=== PATIENT | male | born 1955 | race Caucasian/White ===

== ENCOUNTER 2017-08-02 08:12 | Outpatient (CLI) | payer OTHER | END 2017-08-02 08:13 | disposition home or self-care (01) | LOC: LABBT 08:12 | PROVIDERS: ATTEND Specialist | DX: Z01.818 Encounter for other preprocedural examination (principal); R59.0 Localized enlarged lymph nodes; K40.90 Unilateral inguinal hernia, without obstruction or gangrene, not specified as recurrent ==

== ENCOUNTER 2017-08-03 06:00 | Day surgery (SDC) | payer OTHER ==
--- NOTE | 2017-08-01 16:02 | HP ---
HISTORY OF PRESENT ILLNESS: Willard Sterling is a 61-year-old male patient, 283 pounds, 72 inches, BMI 3 8, presents with concerns regarding lymphadenopathy. The patient has had several CAT scans demonstr ating increased lymphadenopathy of retroperitoneum. He is asymptomatic. He does not have weight lo ss and in fact, he has gained weight. He denies night sweats. He denies fever. He denies abdomina l pain. These CAT scans initially revealed \\\\"michelle\\\\" changes consistent with lymphadenopathy. T he lymphadenopathy is increased to 2.5 cm with nodes peripancreatic around the superior mesenteric a rtery and vein and periaortic. On exam, he was appreciated to have lymphadenopathy of right groin g reater than left. On CAT scan, he was noted to have a left inguinal hernia, this was fat containing . The patient is asymptomatic on his left groin. He has never noticed a mass. He does not have an y discomfort. He had a right inguinal hernia repair when he was in the many years ago. I have been asked by Dr. Mccloud for lymph node biopsy. The patient does not desire left inguinal hernia repair at this time. Should he become symptomatic in the future or he developed a mass, this could be repaired. The patient has a history of coronary stent placed after cardiac evaluation for dyspnea. He has never had a myocardial infarction. He follows Dr. Melo and in fact after this v isit today saw Dr. Melo and an echocardiogram is planned for the next day or two and if that is ok ay, he is cleared for surgery and will await that result. Plan is for laparoscopic evaluation for p ossibility of excisional biopsy of mesenteric node and possibility of a right inguinal node biopsy. The nodes in his right groin are probably 2 cm more or less. On 07/18/2016, CT scan of abdomen and pelvis revealed enlarged lymph nodes retroperitoneal, superior mesenteric artery and vein area, and periaortic and peripancreatic with michelle mesentery sign, which is a nonspecific sign that may signify lymphoma. As noted above, he had inguinal hernia with fat c ontaining without bowel. He had a nonobstructing stone within the right kidney and AVM of the right femoral head, it was stable. Subsequently, he had a CAT scan of the abdomen and pelvis on 07/26/20 17 that revealed conspicuous changes, increase in size of lymphadenopathy in areas described to 2.5 cm, and the hernia as described. Recent CBC was normal. The patient reports normal colonoscopy fiv e years ago with Dr. Sanders. As noted above, he has a history of cardiac stent placement and catheter ization done for dyspnea. 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 Cardiac evaluation and plan is noted above. PAST MEDICAL HISTORY: Coronary artery disease, sleep apnea. He can use the CPAP at home. PAST SURGICAL HISTORY: Lithotripsy, cystourethroscopy and stone removal, hydrocele removal as a issa nager, right inguinal hernia repair when in the , colonoscopy performed in the past. TOBACCO: None. ALCOHOL: None to rare. MEDICATIONS: Aspirin daily, Zyrtec daily, rosuvastatin daily. PHYSICAL EXAMINATION: VITAL SIGNS: Weight 283 pounds, height 72 inches, BMI 38, blood pressure 136/81, heart rate 69, tem perature 97.3 degrees. HEAD, EYES, EARS, NOSE, AND THROAT: Unremarkable. LUNGS: Clear to auscultation. CARDIAC: Regular rate and rhythm without murmur or gallop. ABDOMEN: Soft, obese. No axillary or cervical lymphadenopathy. Groins lymphadenopathy, right grea ter than left. Nodes, however, not remarkable on the right, probably 2.5 cm at most, mobile, non-ma tted. EXTREMITIES: Unremarkable. Left groin examined standing. Inguinal hernia present on Valsalva, rig ht groin without hernia on Valsalva. ASSESSMENT AND PLAN: 1. Lymphadenopathy, retroperitoneal, increased in size on serial CAT scans. We will plan laparosco pic evaluation and biopsy is indicated. 2. Right groin lymphadenopathy of questionable significance, possible biopsy pending above findings . 3. Coronary artery disease, stable, echocardiogram planned with Dr. Melo, cardiac clearance pendi ng now. 4. Coronary disease, history of cardiac stent placed for dyspnea, asymptomatic since he is very act candida physically without cardiac symptoms. 5. Left inguinal hernia observed. ADDENDUM: Mr. Sterling saw Dr. Prema Melo, had an EKG that was unremarkable. Dr. Melo agreed the patient wa s asymptomatic from a cardiac standpoint. He was cleared to proceed with surgery without further wo rkup or intervention. The patient will be scheduled for laparoscopic biopsy of abdominal nodes, pos sible right groin node biopsy. ADDENDUM: Mr. Sterling is undergoing laparoscopic evaluation of mesenteric lymphadenopathy, possible e xcisional biopsy of a groin node. The patient has been followed by Dr. Melo. I personally discus sed with Dr. Melo who states that the patient is cleared for surgery without further cardiac evalu ation.
[2017-08-02 08:28] VITALS: BMI 37.7
--- NOTE | 2017-08-02 14:52 | HP ---
ADDENDUM: Addendum to dictation [id number] Mr. Sterling is undergoing laparoscopic evaluation of mesenteric lymphadenopathy, possible excisional b iopsy of a groin node. The patient has been followed by Dr. Melo. I personally discussed with Dr Adrian Mleo who states that the patient is cleared for surgery without further cardiac evaluation.
[2017-08-03] MEDS ORDERED: CEFAZOLIN/Water 2 GM/20 ML SYRINGE ONE (06:23)
[2017-08-03] MEDS ORDERED: Ketorolac Tromethamine 30 MG/ML VIAL ONE (06:23)
[2017-08-03] MEDS ORDERED: Bupivacaine/Epinephrine 0.25% 30 ML VIAL ONE (07:01)
[2017-08-03] MEDS ORDERED: Midazolam HCl 2 mg/2 ml Vial ONE (07:08)
[2017-08-03] MEDS ORDERED: Fentanyl 100 MCG/2 ML VIAL ONE (07:08)
[2017-08-03] MEDS ORDERED: Lidocaine 2% PF 10 ML AMP (For Epidural Use) ONE (07:27)
[2017-08-03] MEDS ORDERED: Ondansetron HCl/PF 4 MG/2 ML Vial ONE (07:27)
[2017-08-03] MEDS ORDERED: Propofol 200 MG/20 ML VIAL ONE (07:27)
[2017-08-03] MEDS ORDERED: ePHEDrine/0.9% NaCl/PF SYRINGE 50 mg/10 ml ONE (07:27)
--- NOTE | 2017-08-03 10:46 | OP ---
DATE OF PROCEDURE: 08/03/2017 PREOPERATIVE DIAGNOSES: Lymphadenopathy increased from size 1.5 to 2.5 cm, peripancreatic periaortic mesenteric SMA area. Morbid obesity. POSTOPERATIVE DIAGNOSES: Lymphadenopathy increased from size 1.5 to 2.5 cm, peripancreatic periaorti c mesenteric SMA area. Morbid obesity. PROCEDURE: Diagnostic laparoscopy. I could not identify a node to biopsy, although there was some f atty tissue that turned out not to be anderson. Evaluation of the groins under anesthesia revealed abse nce of lymphadenopathy. SPECIMENS: None. SURGEON: Dr. Sg Medina ANESTHESIA: General. Local 0.5% Marcaine with epinephrine, 30 mL. PROCEDURE: The patient was taken to the operating room where under general anesthesia, abdomen was c lipped of hair, prepared with ChloraPrep, draped in routine fashion. Left lateral subcostal incision made and pneumoperitoneum to 15 mmHg obtained with the Veress needle, replacing it with a 5 port. L eft lateral abdominal incision made and an 11 port placed. Left lower quadrant lateral incision made and a 5 port placed, all under laparoscopic visualization. The patient was placed in Trendelenburg, rotated to his right, viscera reflected to his right and I inspected the area near the duodenum alex g the periaortic area and could not find any adequate nodes to biopsy. There was an area where there appeared to be possible anderson tissue in the mesentery of the small bowel and this was opened, but ag ain just fatty tissue, I could not identify a node. I then rotated the patient to the left lateral d ecubitus position and exposed the area near the superior mesenteric artery were preoperative CAT scan suggested lymphadenopathy. There was some fullness in the area and over a generalized area I opened the peritoneum and again there was abundant fatty tissue, but no significant lymphadenopathy. Caref ul dissection using the LigaSure and blunt dissection revealed only fatty tissue. I could not identi fy a node to biopsy or excise. Further dissection was felt to be not worthwhile and pneumoperitoneum reduced. All instruments removed and all skin incisions approximated with interrupted subdermal 4-0 Monocryl and DermaGlue applied. Under anesthesia I did then inspected the groins, evaluated them and I did not feel that there was an y significant lymphadenopathy worthy of biopsy. Incision was not made. The patient tolerated the pr ocedure well.
== END 2017-08-03 11:05 | disposition home or self-care (01) ==
LOC: SDC 06:00
PROVIDERS: ATTEND Specialist
PROC: 0WJH4ZZ Inspection of Retroperitoneum, Percutaneous Endoscopic Approach (ICD-10-PCS; principal; 2017-08-03)
DX: R59.0 Localized enlarged lymph nodes (principal); K40.90 Unilateral inguinal hernia, without obstruction or gangrene, not specified as recurrent; E66.01 Morbid (severe) obesity due to excess calories; I25.10 Atherosclerotic heart disease of native coronary artery without angina pectoris; G47.33 Obstructive sleep apnea (adult) (pediatric); Z68.37 Body mass index [BMI] 37.0-37.9, adult; Z79.82 Long term (current) use of aspirin; Z79.899 Other long term (current) drug therapy; Z99.89 Dependence on other enabling machines and devices; Z91.018 Allergy to other foods; Z95.818 Presence of other cardiac implants and grafts; Z90.89 Acquired absence of other organs; Z98.890 Other specified postprocedural states; Z85.828 Personal history of other malignant neoplasm of skin
CPT/HCPCS: J0131; J1885; J2001; J2250; J2405; J2704; J3010

== ENCOUNTER 2017-11-17 11:55 | Outpatient (CLI) | payer BC ==
[2017-11-17 13:24] LABS: Hemoglobin 15.2 g/dL (14.0-18.0); Mean Corpuscular HGB CONC 34.8 g/dL (32.0-36.0); Mean Corpuscular Hemoglobin 32.9 pg (27.0-31.0); Mean Corpuscular Volume 94.4 fl (80.0-94.0); Mean Platelet Volume 6.4 fL (7.4-10.4); Platelet Count 185 thou/uL (130-400); RBC Distribution Width 11.6 % (11.5-14.5); Red Blood Cell (RBC) Count 4.62 mill/uL (4.70-6.10); White Blood Cell (WBC) Count 4.9 thou/uL (4.8-10.8)
[2017-11-17 13:29] LABS: Prothrombin Time 13.1 SEC (12.0-14.7)
[2017-11-17 13:30] LABS: PTT 28.1 SEC (22.9-36.1)
[2017-11-17 13:45] LABS: Anion Gap 10 mmol/L (10-20); BUN (Urea Nitrogen) 12 mg/dL (8.4-25.7); Calc. Creatinine Clearance 0 mL/min (70-130); Calcium 9.3 mg/dL (7.8-10.44); Carbon Dioxide 27 mmol/L (23-31); Chloride 106 mmol/L (98-107); Estimated GFR-MDRD Greater than 90; Glucose 94 mg/dL (80-115); Sodium 139 mmol/L (136-145)
== END 2017-11-17 11:56 | disposition home or self-care (01) ==
LOC: LABBT 11:55
PROVIDERS: ATTEND Internal Medicine Cardiovascular Disease
DX: Z01.818 Encounter for other preprocedural examination (principal); I25.10 Atherosclerotic heart disease of native coronary artery without angina pectoris; R94.30 Abnormal result of cardiovascular function study, unspecified
CPT/HCPCS: 80048; 85027; 85610; 85730

== ENCOUNTER → 2017-11-22 | Day surgery (SDC) | payer BC ==
[2017-11-17 12:42] VITALS: BMI 37.5
[~2017-11-22] MED LIST: Fentanyl 100 MCG/2 ML VIAL ONE; Iopamidol 370 76% 100 ML VIAL ONE; Lidocaine 1% (PF) 30 ML VIAL ONE; Midazolam HCl 2 mg/2 ml Vial ONE
--- NOTE | 2017-11-22 14:33 | CON ---
DATE OF CONSULTATION: 11/22/2017 HISTORY OF PRESENT ILLNESS: This is a soon to be 62-year-old gentleman with coronary stents due to d yspnea on exertion about 14 years ago to the LAD. Repeat catheterization subsequently showed good re sult. He has been doing well, although may have had some increased dyspnea on exertion. 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 He underwent stress test showing a decrease in the anterior wa ll ejection fraction with exercise. His risk factors include obesity, and dyslipidemia with no histo ry of hypertension or diabetes mellitus. PAST SURGICAL HISTORY: Includes cholecystectomy, kidney stone removal by Dr. Florence, 5 sinus sur[address] ies by Dr. Sunshine as well as removal of tonsils and uvula by Dr. Sunshine. He has had a remote hydroc frances removal and right inguinal hernia repair. Most recently in 08/2017 he had a laparoscopy to biops y some lymph nodes that turned out to be fatty tissue. SOCIAL HISTORY: As noted above, he is a nonsmoker. He is and accompanied by [id number] and his . REVIEW OF SYSTEMS: The patient has nocturia x1. He denies chest discomfort, no history of stroke. No GI complaints. Respiratory; complains occasionally has coughing spells related to perhaps some a spiration related to his upper airway surgery. MEDICATIONS: Aspirin, Crestor 40, Zetia 10. PHYSICAL EXAMINATION: VITAL SIGNS: Weight 270. NECK: No carotid bruits. CARDIAC: Regular rate and rhythm. No murmurs. LUNGS: Clear to auscultation. ABDOMEN: Obese, nontender. EXTREMITIES: Palpable pedal pulses bilaterally. PLAN: Cardiac catheterization in-stent LAD stenosis with a proximal LAD lesion and then 80% stenosis of an OM 1 and 30% right coronary stenosis. Plan coronary bypass grafting to the LAD, OM1. The pa tiebuddy will contact my office to schedule.
== END ==
LOC: CCL 05:58
PROVIDERS: ATTEND Internal Medicine Cardiovascular Disease
PROC: B2151ZZ Fluoroscopy of Left Heart using Low Osmolar Contrast (ICD-10-PCS; principal; 2017-11-22)
PROC: 4A023N7 Measurement of Cardiac Sampling and Pressure, Left Heart, Percutaneous Approach (ICD-10-PCS; principal; 2017-11-22)
DX: I25.10 Atherosclerotic heart disease of native coronary artery without angina pectoris (principal); E78.5 Hyperlipidemia, unspecified; I10 Essential (primary) hypertension; Z79.82 Long term (current) use of aspirin; Z79.899 Other long term (current) drug therapy; Z91.018 Allergy to other foods
CPT/HCPCS: 76942; 93458; 99152; 99153; C1769; J1644; J2001; J2250; J3010

== ENCOUNTER 2017-12-06 07:49 | Inpatient (IN) | payer BC ==
[2017-12-06] MEDS ORDERED: Nitroglycerin 0.4 MG TAB (25 Tab Bottle) ONE ×2 (07:55→13:04)
[2017-12-06 08:20] LABS: #Eosinphils 0.2 thou/uL (0.0-0.7); #Lymphocytes 1.6 thou/uL (1.20-3.40); #Monocytes 0.4 thou/uL (0.11-0.59); #Neutrophils 3.5 thou/uL (1.40-6.50); %Basophils 0.5 % (0.0-1.0); %Eosinophils 3.6 % (0.0-10.0); %Lymphocytes 27.7 % (21.0-51.0); %Monocytes 7.7 % (0.0-10.0); %Neutrophils 60.5 % (42.0-75.0); Hemoglobin 16.5 g/dL (14.0-18.0); Mean Corpuscular HGB CONC 34.8 g/dL (32.0-36.0); Mean Corpuscular Hemoglobin 32.9 pg (27.0-31.0); Mean Corpuscular Volume 94.5 fl (80.0-94.0); Mean Platelet Volume 6.8 fL (7.4-10.4); Platelet Count 197 thou/uL (130-400); RBC Distribution Width 11.7 % (11.5-14.5); Red Blood Cell (RBC) Count 5.03 mill/uL (4.70-6.10); White Blood Cell (WBC) Count 5.7 thou/uL (4.8-10.8)
--- NOTE | 2017-12-06 08:38 | RAD ---
PORTABLE CHEST 1 VIEW: Date: 12/06/17 Time: 0833 hours HISTORY: Left-sided chest pain. FINDINGS: Comparison made with exam of 06/30/16. The heart size is stable. No confluent areas of consolidation, pneumothorax, chacha pulmonary edema, o r pleural effusions are seen. IMPRESSION: No radiographic evidence of acute cardiopulmonary process. POS: OFF
[2017-12-06 08:41] LABS: ALT (SGPT) 45 U/L (8-55); AST (SGOT) 37 U/L (5-34); Albumin 4.7 g/dL (3.4-4.8); Alkaline Phosphatase 86 U/L (40-150); Anion Gap 13 mmol/L (10-20); BUN (Urea Nitrogen) 10 mg/dL (8.4-25.7); Bilirubin, Total 0.8 mg/dL (0.2-1.2); CK (CPK) 177 U/L (30-200); Calc. Creatinine Clearance 0 mL/min (70-130); Calcium 9.6 mg/dL (7.8-10.44); Carbon Dioxide 26 mmol/L (23-31); Chloride 104 mmol/L (98-107); Estimated GFR-MDRD 90; Glucose 135 mg/dL (80-115); Potassium 4.3 mmol/L (3.5-5.1); Protein, Total 7.7 g/dL (5.8-8.1); Sodium 139 mmol/L (136-145)
[2017-12-06 08:42] LABS: CKMB 4.2 ng/mL (0-6.6); Troponin I Less than 0.010 ng/mL (< 0.028)
[2017-12-06] MEDS ORDERED: Enoxaparin Sodium 100 MG/ML SYRINGE ONE (12:53)
[2017-12-06] MEDS ORDERED: Morphine 4 MG/ML VIAL ONE (13:04)
[2017-12-06] MEDS ORDERED: Nitroglycerin 2% Ointment 1 INCH/1 GM Packet ONE (13:34)
[2017-12-06] MEDS ORDERED: Nitroglycerin 2% Ointment 1 INCH/1 GM Packet TOP SCH (14:00)
[2017-12-06 14:47] LABS: Troponin I Less than 0.010 ng/mL (< 0.028)
[2017-12-06] MEDS ORDERED: HYDROcodone/Acetaminophen 5/325 mg Tablet PO PRN (14:52)
[2017-12-06] MEDS ORDERED: Mag-Al 1200 mg/1200 mg/30 ML UDCUP PO PRN (14:52)
[2017-12-06] MEDS ORDERED: Benzonatate 100 MG CAP PO PRN (14:52)
[2017-12-06] MEDS ORDERED: Lorazepam 1 MG TAB PO PRN (14:52)
[2017-12-06] MEDS ORDERED: Loratadine 10 MG TAB PO PRN (14:52)
[2017-12-06] MEDS ORDERED: traMADol HCl 50 MG TAB PO PRN (14:52)
[2017-12-06] MEDS ORDERED: Diabetic Tussin 200 MG/10 ML UDCUP PO PRN (14:52)
[2017-12-06] MEDS ORDERED: cloNIDine 0.1 MG TAB PO PRN (14:52)
[2017-12-06] MEDS ORDERED: Ondansetron HCl/PF 4 MG/2 ML Vial IVP PRN (14:52)
[2017-12-06] MEDS ORDERED: Nitroglycerin 0.4 MG TAB (25 Tab Bottle) SL PRN (14:52)
[2017-12-06] MEDS ORDERED: Senokot 8.6 MG TAB PO PRN ×2 (14:52)
[2017-12-06] MEDS ORDERED: Bisacodyl 5 MG TAB PO PRN ×2 (14:52)
[2017-12-06] MEDS ORDERED: Calcium Carbonate 500 MG ChewTAB PO PRN (14:52)
[2017-12-06] MEDS ORDERED: Acetaminophen 325 MG TAB PO PRN (14:52)
[2017-12-06] MEDS ORDERED: hydrALAZINE 20 MG/ML VIAL SLOW IVP PRN (14:52)
--- NOTE | 2017-12-06 14:58 | CON ---
DATE OF CONSULTATION: 12/06/2017 HISTORY OF PRESENT ILLNESS: The patient is a pleasant 61-year-old gentleman with a history of coronary artery disease, who presents with recurrent chest discomfort. The patient has a long history of coronary artery disease. He states in 2004, he had several cardiac stents placed. Most recently, the patient developed increasing dyspnea. He underwent a stress test that revealed evidence of ischemia. He subsequently underwent a cardiac catheterization and found to have severe coronary artery disease and was scheduled to undergo coronary bypass graft surgery. The patient was going to go to the dentist today when he developed left-sided chest pain that radiated into his left arm. He came to the emergency room for further evaluation. The patient at this time reports that he has continued to have chest discomfort. PAST MEDICAL HISTORY: 1. CAD. 2. Hypertension. 3. Dyslipidemia. 4. Kidney stones. PAST SURGICAL HISTORY: Hernia surgery, tonsillectomy, sinus surgery. MEDICATIONS: Lipitor 40 at bedtime, aspirin tablet daily, and Zetia 10 daily. SOCIAL HISTORY: Nonsmoker. ALLERGIES: None. FAMILY HISTORY: No strong family history of heart disease. REVIEW OF SYSTEMS: Ten-point system otherwise unremarkable. No history of easy bruising or bleeding, bright red blood per rectum. PHYSICAL EXAMINATION: GENERAL: This is an obese gentleman in no acute distress with a blood pressure of 150/90. NECK: Showed no jugular venous distention, no carotid bruits. LUNGS: Clear to auscultation. HEART: Regular rate and rhythm, normal S1 and S2, no murmurs. ABDOMEN: Distended. EXTREMITIES: Showed no edema. SKIN: Warm and dry. NEUROLOGIC EXAM: Nonfocal. VASCULAR: Radial pulses 2+. LABORATORY DATA: White blood cell count 5.7, hemoglobin 16.5, hematocrit 47.6, platelets are 197. Sodium is 139, potassium 4.3, chloride 104, bicarbonate 26, BUN 10, creatinine is 0.86, troponin less than 0.01. EKG revealed sinus bradycardia with no acute ST-T-wave changes. IMPRESSION: 1. Unstable angina. 2. History of severe coronary artery disease. 3. Hypertension. 4. Dyslipidemia. 5. Obesity. This gentleman presents with unstable angina. The patient has continued to have chest discomfort. The patient will now receive subcutaneous Lovenox, nitro paste, and morphine. If the patient's chest pain continues, he will need to be placed on IV nitroglycerin. Cardiothoracic will be consulted. We will follow this patient with you through his hospitalization. CHASITY
--- NOTE | 2017-12-06 15:37 | HP ---
DATE OF ADMISSION: 12/06/2017 PRIMARY CARE PHYSICIAN: Ruperto Ornelas M.D. PRIMARY SEGMENTAL PAVER INSTALLER: Dr. Melo. CHIEF COMPLAINT: Chest pain, diaphoresis, shortness of breath. HISTORY OF PRESENT ILLNESS: Mr. Sterling is a pleasant 61-year-old male with past medical his tory of dyslipidemia, coronary artery disease, and kidney stones status post cardiac stenting x3, who presented to the ER with above-mentioned complaint. History is mainly obtained by the patient himse lf and electronic medical records have been reviewed. Mr. Sterling reports that he has been under care of Dr. Melo and for the last few months has been havi ng worsening shortness of breath. He underwent cardiac stress testing on 11/22/2017 which showed api ayanna ischemia. For this reason, he underwent cardiac catheterization by Dr. Melo on 11/22/2017. Th is showed 2-vessel coronary artery disease with lesions in LAD stent 90% as well as 90% obtuse margin al to 60% ostial LAD lesions. EF estimated at 55%. He was sent to Cardiothoracic Surgery, Dr. Boyle for elective CABG. Dr. Boyle saw the patient on 11/22/2017 and the plan was to get him scheduled fo r CABG of 2 vessels on 12/09/2017. However, the patient started to have symptoms earlier this morning while driving to dentist. He repo rts that he had a dull, 4/10 pain in the center of the chest, associated with left arm heaviness, jeannie rtness of breath, diaphoresis, nausea and dizziness. These symptoms alarmed him and he presented to the emergency room instead. Upon presentation to the ER, his blood pressure was 218/112 with a pulse of 71, oxygen saturation 94% on room air. His initial workup included a 12-lead EKG which did not h ave any acute ST or T-wave changes. His cardiac enzymes were unremarkable. His EKG was repeated and once again it did not show any acute changes. He received transdermal as well as sublingual nitrogl ycerin in the emergency room with morphine. He also received 1 mg/kg of Lovenox x1 as well as 5 mg o f labetalol and 325 mg of aspirin in the ER. His migratory farm hand was consulted as well as his cardiotho racic surgeon. The plan is to admit this patient to Medicine team for possible coronary artery bypas s graft during this hospitalization. Primary diagnosis at the time unstable angina. PAST MEDICAL HISTORY: 1. Coronary artery disease status post cardiac stenting. 2. Hypertension. 3. Kidney stone followed up with Dr. Florence. ALLERGIES: No known medication allergies. FAMILY HISTORY: Coronary artery disease and quadruple bypass in father in his 60s. SOCIAL HISTORY: He is and lives with his family. No history of drug, tobacco or alcohol abu se. PAST SURGICAL HISTORY: 1. Cholecystectomy. 2. Kidney stone removal by Dr. Florence. 3. Sinus surgery as well as removal of tonsil and uvula by Dr. Sunshine. 4. History of hydrocele removal. 5. Right inguinal hernia repair. 6. Lymph node biopsy in 08/2017. MEDICATIONS: Aspirin 81 mg daily, Crestor 40 mg daily, Zetia 10 mg daily. REVIEW OF SYSTEMS: The patient is feeling much better at this time. The following complete review o f systems was negative, unless otherwise mentioned in the HPI or below: Constitutional: Weight loss or gain, ability to conduct usual activities. Skin: Rash, itching. Eyes: Double vision, pain. E NT/Mouth: Nose bleeding, neck stiffness, pain, tenderness. Cardiovascular: Palpitations, dyspnea o n exertion, orthopnea. Respiratory: Shortness of breath, wheezing, cough, hemoptysis, fever or nigh t sweats. Gastrointestinal: Poor appetite, abdominal pain, heartburn, nausea, vomiting, constipatio n, or diarrhea. Genitourinary: Urgency, frequency, dysuria, nocturia. Musculoskeletal: Pain, swel ling. Neurologic/Psychiatric: Anxiety, depression. Allergy/Immunologic: Skin rash, bleeding tende ncy. LABORATORY DATA AND IMAGIN. Chest x-ray by my review has no evidence of pulmonary edema, effusion or infiltrate. A 12-lead E KG by my review shows normal sinus rhythm without any acute ST or T-wave changes. No ectopy is notic ed. 2. EKGs done in the emergency room, heart rate 70 in the first EKG and 54 in the second EKG. 3. CBC unremarkable. Serum chemistry, blood sugar 135, AST 37, otherwise unremarkable. Troponin le ss than 0.010 x2. CK-MB normal at 4.2. PHYSICAL EXAMINATION: VITAL SIGNS: Most recent blood pressure 98/63, pulse of 57, respirations 17, saturating 93% on 3 lit ers oxygen, afebrile, temperature 97.5. GENERAL: No acute distress, awake, alert, oriented x3. HEENT: Mucous membrane is moist and pink. No oropharyngeal exudate or erythema. Head is normocepha lic, atraumatic. Pupils are equal, reactive to light and accommodation. Extraocular movements are i ntact. NECK: Supple without any lymphadenopathy, JVD or bruit. CHEST: Clear to auscultation without any wheezing, rales or rhonchi. HEART: Rate and rhythm is regular without any murmur, rubs or gallops. ABDOMEN: Soft, nontender, nondistended with positive bowel sounds. EXTREMITIES: Free of any cyanosis, clubbing, or edema. NEUROLOGIC: Nonfocal. SKIN: Free of any rashes or bruises. Feel warm and dry to touch. PSYCHIATRIC: Normal affect. IMPRESSION AND PLAN: 1. Unstable angina. We will start the patient on therapeutic dose of Lovenox 1 mg/kg at this time. This has been discussed with Dr. Melo. He has actually been evaluated by Dr. Zimmerman who is cove ring for Dr. Melo at this time. Continue with his Lipitor, Zetia, and transdermal nitroglycerin. Patient will also be evaluated by Cardiothoracic Surgery for possible coronary artery bypass graft so matthew than later. He will be admitted to telemetry unit. We will keep a close eye on his blood press ure as he has significant drop in his blood pressure in the Emergency Room with the use of sublingual nitroglycerin and Lopressor. Avoid any further antihypertensives at this time. Reduce the dose of nitroglycerin. Continue daily dose of aspirin. Supplemental oxygen, pain medications have been orde red. 2. Hypertensive urgency. His symptoms have much improved for now. He will continue on transdermal nitroglycerin with close monitoring of the blood pressure. His blood pressure is on the lower side a t this time, so we will avoid any beta-noah, MASSIEL inhibitors for now. P.r.n. antihypertensives and antianxiety medications have been ordered. 3. Dyslipidemia. Resume his Crestor and Zetia for now. 4. History of coronary artery disease as #1: We have started him on full dose aspirin with continua tion of his statin at this time. The patient will undergo coronary artery bypass graft most likely t his hospitalization after evaluation by Cardiology and Cardiothoracic Surgery. 5. Moderate obesity. 6. History of renal stones. 7. Deep venous thrombosis and gastrointestinal prophylaxis. The patient also is on subcutaneous Prince enox therapeutic dose. We will add IV Pepcid b.i.d. for now. 8. Daily labs and supportive care and p.r.n. medications have been ordered. DISPOSITION: Mr. Sterling is currently being admitted to telemetry floor for unstable angina and will m ost likely undergo coronary artery bypass graft. He has no history of 2-vessel coronary artery disea se and most recent cardiac catheterization. Estimated length of stay at this time is at least 2-3 mi dnights.
[2017-12-06] MEDS ORDERED: Communication Order-Pharmacy FS ONE (18:17)
[2017-12-06] MEDS ORDERED: Sodium Chloride 0.9% 10 ML ONE (20:19)
[2017-12-06] MEDS: Nitroglycerin 2% Ointment 1 INCH/1 GM Packet TOP SCH (20:43)
[2017-12-06] MEDS ORDERED: Famotidine 40 MG/4 ML VIAL SLOW IVP SCH (21:00)
[2017-12-06] MEDS ORDERED: Atorvastatin Calcium 40 MG TAB PO SCH (21:00)
[2017-12-06] MEDS ORDERED: Enoxaparin Sodium 120 MG/0.8 ML SYRINGE SC SCH (21:00)
[2017-12-07] MEDS ORDERED: CEFAZOLIN/Water 2 GM/20 ML SYRINGE SLOW IVP SCH (01:15)
[2017-12-07] MEDS: Nitroglycerin 2% Ointment 1 INCH/1 GM Packet TOP SCH (05:30)
[2017-12-07 05:56] LABS: #Eosinphils 0.2 thou/uL (0.0-0.7); #Lymphocytes 1.2 thou/uL (1.20-3.40); #Monocytes 0.5 thou/uL (0.11-0.59); #Neutrophils 3.2 thou/uL (1.40-6.50); %Basophils 0.7 % (0.0-1.0); %Eosinophils 3.3 % (0.0-10.0); %Lymphocytes 23.2 % (21.0-51.0); %Neutrophils 62.8 % (42.0-75.0); Hemoglobin 14.8 g/dL (14.0-18.0); Mean Corpuscular HGB CONC 35.5 g/dL (32.0-36.0); Mean Corpuscular Hemoglobin 32.9 pg (27.0-31.0); Mean Corpuscular Volume 92.7 fl (80.0-94.0); Mean Platelet Volume 6.7 fL (7.4-10.4); Platelet Count 161 thou/uL (130-400); RBC Distribution Width 11.4 % (11.5-14.5); Red Blood Cell (RBC) Count 4.51 mill/uL (4.70-6.10); White Blood Cell (WBC) Count 5.1 thou/uL (4.8-10.8)
[2017-12-07 06:12] LABS: Anion Gap 9 mmol/L (10-20); BUN (Urea Nitrogen) 9 mg/dL (8.4-25.7); Calc. Creatinine Clearance 173 mL/min (70-130); Carbon Dioxide 27 mmol/L (23-31); Chloride 105 mmol/L (98-107); Estimated GFR-MDRD Greater than 90; Glucose 123 mg/dL (80-115); Potassium 4.1 mmol/L (3.5-5.1); Sodium 137 mmol/L (136-145)
[2017-12-07] MEDS ORDERED: Prevnar 13-Val Conj/PF 0.5 ML SYRINGE IM ONE (09:00)
[2017-12-07] MEDS ORDERED: Ezetimibe 10 MG TAB PO SCH (09:00)
[2017-12-07] MEDS ORDERED: Aspirin 325 mg Enteric Coated Tablet PO SCH (09:00)
[2017-12-07] MEDS ORDERED: Heparin 10,000 UNITS/1 ML VIAL 30,000 UNITS in Sodium Chloride 0.9% 1,000 ML FS SCH (09:15)
[2017-12-07] MEDS ORDERED: Fentanyl 250 MCG/5 ML VIAL ONE ×2 (10:22→11:19)
[2017-12-07] MEDS ORDERED: Midazolam HCl 5 mg/5 ml Vial ONE (10:22)
[2017-12-07] MEDS ORDERED: Norepinephrine 8 MG/0.9% NS 250 ML ONE (10:23)
[2017-12-07] MEDS ORDERED: Nitroglycerin 50 MG/250 ML BOT 250 ML ONE (10:23)
[2017-12-07] MEDS ORDERED: Phenylephrine HCL 10 MG/ML VIAL ONE (10:23)
[2017-12-07] MEDS ORDERED: Vecuronium 10 MG VIAL ONE ×2 (10:23→15:41)
[2017-12-07] MEDS ORDERED: CEFAZOLIN/Water 2 GM/20 ML SYRINGE ONE (11:12)
[2017-12-07] MEDS ORDERED: Midazolam HCl 2 mg/2 ml Vial ONE (11:18)
--- NOTE | 2017-12-07 15:21 | PDOC.PN ---
- Subjective Encounter Start Date: 12/07/17 Encounter Start Time: 15:18 Subjective: anxious going for CABG, -: denies any changes.feels well.no chest pain/SOB - Objective MAR Reviewed: Yes Vital Signs & Weight: Vital Signs (12 hours) Temp Pulse Resp BP Pulse Ox 12/07/17 07:51 98.3 F 68 16 133/90 95 12/07/17 04:26 97.8 F 55 L 12 158/83 H 95 Weight Weight 271 lb 1.6 oz I&O: 12/06/17 12/07/17 12/08/17 06:59 06:59 06:59 Intake Total 1450 Output Total 9193 142 Balance -8911 -845 Result Diagrams: 12/07/17 05:20 12/07/17 05:20 Additional Labs: Accuchecks 12/07/17 12/07/17 12/07/17 14:59 14:40 13:51 POC Glucose 128 H 123 H 107 12/07/17 12:12 POC Glucose 98 Phys Exam - Physical Examination Constitutional: NAD HEENT: PERRLA, moist MMs, sclera anicteric, oral pharynx no lesions Neck: no nodes, no JVD, supple, full ROM Respiratory: no wheezing, no rales, no rhonchi, clear to auscultation bilateral Cardiovascular: RRR, no significant murmur Gastrointestinal: soft, non-tender, no distention, positive bowel sounds Musculoskeletal: no edema, pulses present Neurological: non-focal, normal sensation, moves all 4 limbs Psychiatric: normal affect, A&O x 3 Skin: no rash Dx/Plan (1) Unstable angina Status: Acute (2) HTN (hypertension) Code(s): I10 - ESSENTIAL (PRIMARY) HYPERTENSION Status: Acute (3) CAD (coronary artery disease) Code(s): I25.10 - ATHSCL HEART DISEASE OF [place] CORONARY ARTERY W/O ANG PCTRS Status: Acute (4) HLD (hyperlipidemia) Code(s): E78.5 - HYPERLIPIDEMIA, UNSPECIFIED Status: Acute - Plan plan discussed w/ family, DVT proph w/SCDs CABG today.cardiology following -: Cont cardio-prudent meds * . Review of Systems - Review of Systems Constitutional: negative: fever, chills, sweats, weakness, malaise, other Respiratory: negative: Cough, Dry, Shortness of Breath, Hemoptysis, SOB with Excertion, Pleuritic Pain, Sputum, Wheezing Cardiovascular: negative: chest pain, palpitations, orthopnea, paroxysmal nocturnal dyspnea, edema, light headedness, other Gastrointestinal: negative: Nausea, Vomiting, Abdominal Pain, Diarrhea, Constipation, Melena, Hematochezia, Other Genitourinary: negative: Dysuria, Frequency, Incontinence, Hematuria, Retention , Other Musculoskeletal: negative: Neck Pain, Shoulder Pain, Arm Pain, Back Pain, Hand Pain, Leg Pain, Foot Pain, Other Neurological: negative: Weakness, Numbness, Incoordination, Change in Speech, Confusion, Seizures, Other - Medications/Allergies Allergies/Adverse Reactions: Allergies Allergy/AdvReac Type Severity Reaction Status Date / Time tomato AdvReac Diarrhea Verified 11/17/17 12:42 Medications: Current Medications Cefazolin Sodium (Ancef) 2 gm SLOW IVP WILLCALL EREN Stop: 12/08/17 01:16 Heparin Sodium (Porcine) 30, (000 units/ Sodium Chloride) 1,003 mls @ 0 mls/hr FS WILLCALL EREN PRN Reason: As Directed Stop: 12/07/17 23:59
[2017-12-07] MEDS ORDERED: Protamine Sulfate 250 MG/25 ML VIAL ONE ×2 (15:36→15:41)
[2017-12-07] MEDS ORDERED: Heparin 30,000 units/30 ml VIAL ONE (15:41)
[2017-12-07] MEDS ORDERED: Calcium Chloride 1 GM/10 ML Abboject SYRINGE ONE (15:41)
[2017-12-07] MEDS ORDERED: Glycopyrrolate 0.2 MG/ML 5 ML SYRINGE ONE (15:41)
[2017-12-07] MEDS ORDERED: PHENYLEPHRINE-NS 100 MCG/ML 10 ML SYRINGE ONE (15:41)
[2017-12-07] MEDS ORDERED: Potassium Chloride 60 MEQ/30 ML VIAL ONE (15:41)
[2017-12-07] MEDS ORDERED: Cardioplegic Soln 1,000 ML BAG ONE (15:41)
[2017-12-07] MEDS ORDERED: Thrombin 5000 UNITS/5 ML VIAL ONE (15:41)
[2017-12-07] MEDS ORDERED: Lidocaine 2% PF 100 mg/5 ml Syringe ONE (15:41)
[2017-12-07] MEDS ORDERED: Aminocaproic Acid 5 GM/20 ML VIAL ONE (15:41)
[2017-12-07] MEDS ORDERED: Lidocaine 1% PF 5 ML VIAL ONE (15:41)
[2017-12-07] MEDS ORDERED: PROPOFOL 200 MG/20 ML VIAL ONE (15:41)
[2017-12-07] MEDS ORDERED: Sodium Bicarb 50 MEQ/50 ML VIAL ONE (15:41)
[2017-12-07] MEDS ORDERED: Heparin 5,000 UNITS/ML VIAL ONE (15:41)
[2017-12-07] MEDS ORDERED: Magnesium 5 GM/10 ML VIAL ONE (15:41)
[2017-12-07] MEDS ORDERED: Papaverine 60 MG/2 ML VIAL ONE (15:41)
[2017-12-07 17:03] LABS: CO2 Tension 51.9 mmHg (35.0-45.0); O2 Tension (PaO2) 107.8 mmHg (80.0-100.0); pH, Arterial 7.26 (7.35-7.45)
[2017-12-07 17:04] LABS: Base Excess (BEa) -4.6 mEq/L (0 (+/-) 2.5); Calcium, Ionized 1.2 mmol/L (1.12-1.30)
[2017-12-07 17:05] LABS: ALV-art Gradient 255.125 (0-20); Puncture Site LINE
[2017-12-07] MEDS ORDERED: Potassium Chloride 20 MEQ/100 ML PREMIX BAG IVPB PRN (17:07)
[2017-12-07] MEDS ORDERED: DOPamine 400 MG/D5W 250 ML 250 ML IVPB PRN (17:07)
[2017-12-07] MEDS ORDERED: hydrALAZINE 20 MG/ML VIAL SLOW IVP PRN (17:07)
[2017-12-07] MEDS ORDERED: Post-Op Insulin Drip Protocol IVPB ONE (17:07)
[2017-12-07] MEDS ORDERED: Guaifenesin DM 100-10/5 ML UDCUP PO PRN (17:07)
[2017-12-07] MEDS ORDERED: Fentanyl 100 MCG/2 ML VIAL SLOW IVP PRN ×2 (17:07)
[2017-12-07] MEDS ORDERED: Morphine 4 MG/ML VIAL SLOW IVP PRN (17:07)
[2017-12-07] MEDS ORDERED: niCARdipine HCl 25 MG in Sodium Chloride 0.9% 250 ML 240 ML IVPB PRN (17:07)
[2017-12-07] MEDS ORDERED: Norepinephrine 8 MG/0.9% NS 250 ML IVPB PRN (17:07)
[2017-12-07] MEDS ORDERED: Acetaminophen 325 MG TAB PO PRN (17:07)
[2017-12-07] MEDS ORDERED: Hetastarch 6% 500 ML 500 ML IVPB PRN (17:07)
[2017-12-07] MEDS ORDERED: Bisacodyl 5 MG TAB PO PRN (17:07)
[2017-12-07] MEDS ORDERED: Bisacodyl 10 MG SUPP PR PRN (17:07)
[2017-12-07] MEDS ORDERED: Phenylephrine 10 MG/NS 250 ML 250 ML IVPB PRN (17:07)
[2017-12-07] MEDS ORDERED: Nitroglycerin 50 MG/250 ML BOT 250 ML IVPB PRN (17:07)
[2017-12-07] MEDS ORDERED: Mag-Al 1200 mg/1200 mg/30 ML UDCUP PO PRN (17:07)
[2017-12-07] MEDS ORDERED: Ondansetron HCl/PF 4 MG/2 ML Vial IVP PRN (17:07)
[2017-12-07] MEDS ORDERED: Magnesium Sulfate 5 GM in Sodium Chloride 0.9% 1,000 ML IV SCH (17:15)
[2017-12-07 17:16] LABS: #Eosinphils 0.2 thou/uL (0.0-0.7); #Lymphocytes 1.6 thou/uL (1.20-3.40); #Monocytes 0.7 thou/uL (0.11-0.59); %Basophils 0.1 % (0.0-1.0); %Lymphocytes 8.4 % (21.0-51.0); %Monocytes 3.8 % (0.0-10.0); %Neutrophils 86.8 % (42.0-75.0); Hemoglobin 15.2 g/dL (14.0-18.0); Mean Corpuscular HGB CONC 35.5 g/dL (32.0-36.0); Mean Corpuscular Hemoglobin 33.4 pg (27.0-31.0); Mean Platelet Volume 6.6 fL (7.4-10.4); Platelet Count 153 thou/uL (130-400); RBC Distribution Width 11.8 % (11.5-14.5); Red Blood Cell (RBC) Count 4.56 mill/uL (4.70-6.10); White Blood Cell (WBC) Count 18.5 thou/uL (4.8-10.8)
[2017-12-07] MEDS ORDERED: Insulin Regular 300 UNITS/3 ML VIAL SC PRN (17:17)
[2017-12-07] MEDS ORDERED: Dextrose 50% Abboject 50 ML SYRINGE SLOW IVP PRN (17:17)
[2017-12-07] MEDS ORDERED: Dextrose 5% in Water 1,000 ML IV PRN (17:17)
[2017-12-07 17:23] LABS: Anion Gap 15 mmol/L (10-20); BUN (Urea Nitrogen) 10 mg/dL (8.4-25.7); Calc. Creatinine Clearance 171 mL/min (70-130); Calcium 8.3 mg/dL (7.8-10.44); Carbon Dioxide 22 mmol/L (23-31); Chloride 107 mmol/L (98-107); Estimated GFR-MDRD Greater than 90; Glucose 147 mg/dL (80-115); Potassium 4.5 mmol/L (3.5-5.1); Sodium 139 mmol/L (136-145)
[2017-12-07 17:25] LABS: INR-International Normal Ratio 1.3; PTT 29.6 SEC (22.9-36.1)
[2017-12-07] MEDS: Lactated Ringer's 1,000 ML IV SCH (17:58)
[2017-12-07] MEDS: Ketorolac Tromethamine 30 MG/ML VIAL IVP SCH ×2 (17:59→23:16)
--- NOTE | 2017-12-07 18:54 | RAD ---
RADIOGRAPH CHEST 1 VIEW: Date: 12/07/17 Time: 5:10 p.m. HISTORY: 61-year-old male status post open heart surgery. COMPARISON: 12/06/17, 8:33 a.m. FINDINGS: Again noted is the cardiomegaly, and the ectasia and tortuosity of the thoracic aorta. Endotracheal t ube has now been placed, with distal tip overlying the mid thoracic trachea. A right subclavian centr al venous catheter is in place with distal tip overlying the right atrium. Midline chest tubes are vi sualized, with one of their distal tips overlying the left upper lobe. The lungs are again hypoinflat ed. There is increased attenuation of the left lower lobe, obscured by the hypoinflation. No pulmonar y edema. The visualized portions of the right lung are clear. No pneumothorax identified. There are n ew sternotomy wires. IMPRESSION: 1. Immediately status post coronary artery bypass graft surgery. 2. Status post intubation, central line placement, and mediastinal chest tube placement. 3. Left lower lobe atelectasis. PEGGY [] POS: KENZIE
[2017-12-07 19:04] LABS: Actual Bicarbonate (HCO3a) 21.4 mEq/L (22-26); Base Excess (BEa) -4.4 mEq/L (0 (+/-) 2.5); CO2 Tension 42.3 mmHg (35.0-45.0); Hematocrit-ABG 41.3 % (42.0-52.0); Hemoglobin (Hb) 14.9 g/dL (14.0-18.0); pH, Arterial 7.32 (7.35-7.45)
[2017-12-07 19:05] LABS: ALV-art Gradient 116.925 (0-20); Calcium, Ionized 1.1 mmol/L (1.12-1.30); Puncture Site LINE
[2017-12-07] MEDS: CEFAZOLIN/Water 2 GM/20 ML SYRINGE SLOW IVP SCH (19:46)
[2017-12-07] MEDS: Simvastatin 40 MG TAB PO SCH (20:35)
[2017-12-07] MEDS ORDERED: Famotidine 40 MG/4 ML VIAL SLOW IVP SCH (21:00)
[2017-12-07] MEDS: HYDROcodone/Acetaminophen 5/325 mg Tablet PO PRN (21:47)
[2017-12-07 23:43] LABS: Hemoglobin 13.8 g/dL (14.0-18.0)
[2017-12-07 23:56] LABS: Potassium 4.4 mmol/L (3.5-5.1)
[2017-12-08] MEDS: HYDROcodone/Acetaminophen 5/325 mg Tablet PO PRN ×4 (02:43→21:38)
[2017-12-08] MEDS: CEFAZOLIN/Water 2 GM/20 ML SYRINGE SLOW IVP SCH ×2 (02:50→11:53)
[2017-12-08] MEDS: Lactated Ringer's 1,000 ML IV SCH ×3 (04:05→23:06)
[2017-12-08 05:08] LABS: #Lymphocytes 0.6 thou/uL (1.20-3.40); #Monocytes 0.9 thou/uL (0.11-0.59); #Neutrophils 13.3 thou/uL (1.40-6.50); %Eosinophils 0.1 % (0.0-10.0); %Lymphocytes 4.2 % (21.0-51.0); %Monocytes 6.1 % (0.0-10.0); %Neutrophils 89.6 % (42.0-75.0); Mean Corpuscular HGB CONC 34.8 g/dL (32.0-36.0); Mean Corpuscular Hemoglobin 32.7 pg (27.0-31.0); Mean Corpuscular Volume 93.9 fl (80.0-94.0); Mean Platelet Volume 6.8 fL (7.4-10.4); Platelet Count 153 thou/uL (130-400); RBC Distribution Width 11.9 % (11.5-14.5); Red Blood Cell (RBC) Count 3.98 mill/uL (4.70-6.10); White Blood Cell (WBC) Count 14.9 thou/uL (4.8-10.8)
[2017-12-08 05:17] LABS: Anion Gap 11 mmol/L (10-20); BUN (Urea Nitrogen) 11 mg/dL (8.4-25.7); Calc. Creatinine Clearance 182 mL/min (70-130); Calcium 7.9 mg/dL (7.8-10.44); Carbon Dioxide 23 mmol/L (23-31); Chloride 108 mmol/L (98-107); Estimated GFR-MDRD Greater than 90; Glucose 145 mg/dL (80-115); Potassium 4.3 mmol/L (3.5-5.1); Sodium 138 mmol/L (136-145)
[2017-12-08] MEDS: Ketorolac Tromethamine 30 MG/ML VIAL IVP SCH ×4 (05:48→23:41)
--- NOTE | 2017-12-08 08:58 | PRG ---
DATE OF SERVICE: 12/08/2017 SUBJECTIVE: Mr. Sterling he is awake, alert, no complaints. He is off Levophed. PHYSICAL EXAMINATION: VITAL SIGNS: Blood pressure 107/58, pulse 62 and regular. LUNGS: Clear. CARDIAC: Normal S1, normal S2. ABDOMEN: Soft, nontender. EXTREMITIES: No clubbing, no cyanosis or edema. There is a well healing incision site left radial a nd the vein site harvest on the left. ASSESSMENT: 1. Status post bypass surgery, doing well. 2. Hypercholesterolemia. PLAN: Continue current medical regimen. No changes at this point.
[2017-12-08] MEDS: Aspirin 325 MG TAB PO SCH (09:11)
[2017-12-08] MEDS: Famotidine 20 MG TAB PO SCH ×2 (09:11→21:38)
--- NOTE | 2017-12-08 09:55 | RAD ---
PORTABLE SEMIUPRIGHT FRONTAL CHEST RADIOGRAPH: Date: 12/08/17 COMPARISON: 12/07/17. HISTORY: Evaluate chest following open heart surgery. FINDINGS: ETT has been removed since the prior exam. There is a right subclavian central venous catheter, dista l tip overlying the region of the right atrium. Postoperative drainage catheter is overlying the medi astinum and mid left hemithorax. There is dense opacity in the left perihilar region and left base me dially suggesting nonspecific air space disease. IMPRESSION: Lines and tubes as above. Increased density in the left perihilar region and left lung base, which ma y signify volume loss. Continued follow-up advised. POS: [facility]
--- NOTE | 2017-12-08 14:24 | PRG ---
DATE OF SERVICE: 12/08/2017 SUBJECTIVE: The patient seen and examined at the bedside. He is doing quite well. He does not have much complaints to offer. He has some pain when he starts moving. He had some broth which he was a ble to tolerate. There is not any nausea or abdominal discomfort after the meal. He is in semirecum bent position. At the time of my visit, his is present in the room. OBJECTIVE: VITAL SIGNS: Blood pressure is 113/65, pulse is 76, respiratory rate 18, and O2 saturation is 94%. CVP is 12. HEENT: Head is atraumatic, normocephalic. Eyes are PERRLA. Conjunctivae pinkish. Oral mucosa is s lightly dry. NECK: Supple. LUNGS: Breath sounds diminished at both bases with few crackles bilaterally. HEART: S1, S2 normal. No S3, no S4, no any murmur. ABDOMEN: Soft. CHEST: There is a big dressing over the chest, status post CABG surgery with drains coming out from underneath the dressing. EXTREMITIES: 1+ peripheral edema similar bilaterally. NEUROLOGIC: He is alert and oriented x4. There is not any sensorimotor deficit present. Cranial ne rves are intact. LABORATORY DATA: 1. Showed white count of 14.9, hemoglobin 13.0, hematocrit 37.4, and platelet count has 153,000. 2. Sodium of 130, potassium 4.3, chloride 108, CO2 of 23, BUN 11, creatinine 0.73. Glycemia is rang ing from 128 to 247. Calcium 7.9. IMPRESSION: 1. Hypertension. 2. Acute coronary syndrome, status post coronary artery bypass graft day #1. 3. Hypertensive urgency. 4. History of coronary artery disease status post stenting. 5. History of renal stones, stable. PLAN: The patient seems to be doing quite well status post surgery. It is basically managed by Dr. Boyle. 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 He will continue postop post-CABG protocol with physical therapy and he will follow with rehab after that.
[2017-12-08] MEDS ORDERED: Insulin Detemir 100 UNITS/ML 24 UNITS in Pre-Filled Syringe 1 EACH SC SCH (15:15)
[2017-12-08] MEDS: Simvastatin 40 MG TAB PO SCH (21:38)
[2017-12-09 04:34] LABS: #Eosinphils 0.1 thou/uL (0.0-0.7); #Lymphocytes 1.4 thou/uL (1.20-3.40); #Monocytes 0.9 thou/uL (0.11-0.59); #Neutrophils 8.7 thou/uL (1.40-6.50); %Basophils 0.1 % (0.0-1.0); %Eosinophils 0.7 % (0.0-10.0); %Monocytes 8.1 % (0.0-10.0); %Neutrophils 78.1 % (42.0-75.0); Hemoglobin 11.5 g/dL (14.0-18.0); Mean Corpuscular HGB CONC 34.2 g/dL (32.0-36.0); Mean Corpuscular Hemoglobin 32.8 pg (27.0-31.0); Mean Corpuscular Volume 95.9 fl (80.0-94.0); Mean Platelet Volume 6.7 fL (7.4-10.4); Platelet Count 123 thou/uL (130-400); RBC Distribution Width 12.1 % (11.5-14.5); Red Blood Cell (RBC) Count 3.51 mill/uL (4.70-6.10); White Blood Cell (WBC) Count 11.1 thou/uL (4.8-10.8)
[2017-12-09 04:40] LABS: Anion Gap 9 mmol/L (10-20); BUN (Urea Nitrogen) 15 mg/dL (8.4-25.7); Calc. Creatinine Clearance 187 mL/min (70-130); Calcium 8.2 mg/dL (7.8-10.44); Carbon Dioxide 27 mmol/L (23-31); Chloride 104 mmol/L (98-107); Estimated GFR-MDRD Greater than 90; Glucose 125 mg/dL (80-115); Potassium 4.1 mmol/L (3.5-5.1); Sodium 136 mmol/L (136-145)
[2017-12-09] MEDS: Ketorolac Tromethamine 30 MG/ML VIAL IVP SCH ×4 (05:17→23:22)
--- NOTE | 2017-12-09 08:25 | RAD ---
PORTABLE UPRIGHT FRONTAL CHEST RADIOGRAPH: Date: 12-09-17 Comparison: 12-08-17 History: Evaluate chest following open heart surgery. FINDINGS: Right sided vascular catheter present in stable position. Post-surgical drains overlie the mediastinu m and mid left lung zone, stable. Heart and mediastinal contours are stable. There is elevation of le ft hemidiaphragm. Midline sternotomy wires are present. Hypoventilation limits assessment of the lung bases. Increased density in the medial left base may represent volume loss or infiltrate. IMPRESSION: Stable appearance of the chest. POS: [facility]
[2017-12-09] MEDS: Famotidine 20 MG TAB PO SCH ×3 (08:37→20:55)
[2017-12-09] MEDS: Aspirin 325 MG TAB PO SCH (08:37)
[2017-12-09] MEDS ORDERED: Fentanyl 100 MCG/2 ML VIAL SLOW IVP PRN ×2 (09:20)
[2017-12-09] MEDS ORDERED: Nitroglycerin 0.4 MG TAB (25 Tab Bottle) SL PRN (09:20)
[2017-12-09] MEDS ORDERED: Acetaminophen 325 MG TAB PO PRN (09:20)
[2017-12-09] MEDS ORDERED: Mineral Oil ENEMA PR PRN (09:20)
[2017-12-09] MEDS ORDERED: Bisacodyl 5 MG TAB PO PRN (09:20)
[2017-12-09] MEDS ORDERED: diphenhydrAMINE 25 MG CAP PO PRN (09:20)
[2017-12-09] MEDS ORDERED: Mag-Al 1200 mg/1200 mg/30 ML UDCUP PO PRN (09:20)
[2017-12-09] MEDS ORDERED: Bisacodyl 10 MG SUPP PR PRN (09:20)
[2017-12-09] MEDS ORDERED: Milk Of Magnesia 30 ML UDCUP PO PRN (09:20)
[2017-12-09] MEDS ORDERED: HYDROcodone/Acetaminophen 5/325 mg Tablet PO PRN ×2 (09:20)
[2017-12-09] MEDS ORDERED: Ondansetron HCl/PF 4 MG/2 ML Vial IVP PRN (09:20)
[2017-12-09] MEDS ORDERED: Potassium Chloride 10 MEQ TAB PO SCH (09:45)
--- NOTE | 2017-12-09 09:49 | PRG ---
DATE OF SERVICE: 12/09/2017 Mr. Sterling is up in the chair, doing okay. PHYSICAL EXAMINATION: VITAL SIGNS: Blood pressure 98/71, pulse 86 regular. LUNGS: Clear. CARDIAC: Normal S1, S2. ABDOMEN: Soft, nontender. EXTREMITIES: No edema. ASSESSMENT: 1. Status post coronary bypass grafting. 2. Relatively low blood pressure, but his blood pressure tended to run low even preoperatively. PLAN: 1. Continue aspirin. 2. He is also on Plavix. 3. Zetia. Could not tolerate statins in the past. 4. Consideration for low dose beta blockers if blood pressure improves, but would not start at this point.
[2017-12-09] MEDS: Aspirin 325 mg Enteric Coated Tablet PO SCH (09:50)
[2017-12-09] MEDS: Polyethylene Glycol 3350 17 GM Packet PO SCH (10:10)
[2017-12-09] MEDS: Furosemide 40 MG TAB PO SCH (10:10)
[2017-12-09] MEDS: Clopidogrel Bisulfate 75 MG TAB PO SCH (10:10)
[2017-12-09] MEDS: Loratadine 10 MG TAB PO SCH (10:10)
--- NOTE | 2017-12-09 12:46 | PDOC.PN ---
- Subjective Encounter Start Date: 12/09/17 Encounter Start Time: 10:00 -: old records requested/rev Patient seen and examined. No new complaints. No overnight events - Objective MAR Reviewed: Yes Vital Signs & Weight: Vital Signs (12 hours) Temp Pulse Resp Pulse Ox 12/09/17 08:00 97.9 F 78 16 98 12/09/17 03:00 98 F Weight Weight 279 lb 15.793 oz Most Recent Monitor Data Heart Rate from ECG 65 NIBP 105/62 NIBP BP-Mean 72 Respiration from ECG 18 SpO2 95 I&O: 12/08/17 12/09/17 12/10/17 06:59 06:59 06:59 Intake Total 1943.7 1201.4 720 Output Total 1735 1580 180 Balance 208.7 -378.6 540 Result Diagrams: 12/09/17 04:21 12/09/17 04:21 Additional Labs: Accuchecks 12/08/17 12/08/17 12/08/17 23:48 20:48 17:05 POC Glucose 121 H 121 H 99 12/08/17 12/08/17 12/08/17 16:15 15:06 13:50 POC Glucose 96 113 H 128 H EKG Reviewed by me: Yes Phys Exam - Physical Examination Constitutional: NAD HEENT: PERRLA, moist MMs, sclera anicteric Neck: no JVD, supple Respiratory: no wheezing, no rales, no rhonchi Cardiovascular: RRR, no significant murmur, no rub Gastrointestinal: soft, non-tender, no distention, positive bowel sounds Musculoskeletal: no edema, pulses present Neurological: non-focal, normal sensation, moves all 4 limbs Psychiatric: normal affect, A&O x 3 Skin: no rash, normal turgor Dx/Plan (1) S/P CABG (coronary artery bypass graft) Code(s): Z95.1 - PRESENCE OF AORTOCORONARY BYPASS GRAFT Status: Acute (2) CAD (coronary artery disease) Code(s): I25.10 - ATHSCL HEART DISEASE OF [place] CORONARY ARTERY W/O ANG PCTRS Status: Acute (3) HLD (hyperlipidemia) Code(s): E78.5 - HYPERLIPIDEMIA, UNSPECIFIED Status: Acute (4) HTN (hypertension) Code(s): I10 - ESSENTIAL (PRIMARY) HYPERTENSION Status: Acute (5) Unstable angina Status: Acute - Plan cont current plan of care * stable medically * continue post cabg care as per CT surgeon * cardiology following * medication reviewed as below * symptomatic treatment. Review of Systems - Review of Systems ENT: negative: Ear Pain, Ear Discharge, Nose Pain, Nose Discharge, Nose Congestion, Mouth Pain, Mouth Swelling, Throat Pain, Throat Swelling, Other Respiratory: negative: Cough, Dry, Shortness of Breath, Hemoptysis, SOB with Excertion, Pleuritic Pain, Sputum, Wheezing Cardiovascular: negative: chest pain, palpitations, orthopnea, paroxysmal nocturnal dyspnea, edema, light headedness, other Gastrointestinal: negative: Nausea, Vomiting, Abdominal Pain, Diarrhea, Constipation, Melena, Hematochezia, Other Genitourinary: negative: Dysuria, Frequency, Incontinence, Hematuria, Retention , Other Musculoskeletal: negative: Neck Pain, Shoulder Pain, Arm Pain, Back Pain, Hand Pain, Leg Pain, Foot Pain, Other Skin: negative: Rash, Lesions, Luis, Bruising, Other - Medications/Allergies Allergies/Adverse Reactions: Allergies Allergy/AdvReac Type Severity Reaction Status Date / Time tomato AdvReac Diarrhea Verified 11/17/17 12:42 Medications: Current Medications Acetaminophen (Tylenol) 650 mg PO Q6H PRN PRN Reason: Headache/Fever or Pain Hydrocodone Bitart/Acetaminophen ([place] 5/325) 1 tab PO Q4H PRN PRN Reason: Moderate Pain (4-6) Hydrocodone Bitart/Acetaminophen ([place] 5/325) 2 tab PO Q4H PRN PRN Reason: Severe Pain (7-10) Al Hydroxide/Mg Hydroxide (Maalox) 30 ml PO Q4H PRN PRN Reason: Indigestion Albuterol/Ipratropium (Duoneb) 3 ml NEB [id number] PRN PRN Reason: Respiratory Distress Aspirin (Ecotrin) 325 mg PO DAILY [facility] Last Admin: 12/09/17 09:50 Dose: Not Given Atorvastatin Calcium (Lipitor) 20 mg PO HS [facility] Bisacodyl (Dulcolax) 10 mg PO Q12H PRN PRN Reason: Constipation Bisacodyl (Dulcolax) 10 mg [place] Q12H PRN PRN Reason: Constipation Clopidogrel Bisulfate (Plavix) 75 mg PO DAILY [facility] Last Admin: 12/09/17 10:10 Dose: 75 mg Diphenhydramine HCl (Benadryl) 25 mg PO Q6H PRN PRN Reason: Itching & Insomnia or Francisco J Maxx Famotidine (Pepcid) 20 mg PO BID [facility] Last Admin: 12/09/17 09:51 Dose: Not Given Fentanyl (Sublimaze) 25 mcg SLOW IVP Q2H PRN PRN Reason: Moderate breakthrough pain Fentanyl (Sublimaze) 50 mcg SLOW IVP Q2H PRN PRN Reason: Severe breakthrough pain Furosemide (Lasix) 40 mg PO DAILY [facility] Last Admin: 12/09/17 10:10 Dose: 40 mg Guaifenesin/Dextromethorphan (Robitussin Dm) 15 ml PO Q4H PRN PRN Reason: Cough Ketorolac Tromethamine (Toradol) 15 mg IVP Q6HR [facility] Stop: 12/10/17 12:01 Last Admin: 12/09/17 11:34 Dose: 15 mg Loratadine (Claritin) 10 mg PO DAILYPRN [facility] Last Admin: 12/09/17 10:10 Dose: 10 mg Magnesium Hydroxide (Milk Of Magnesium) 30 ml PO Q12H PRN PRN Reason: Constipation Mineral Oil (Fleet Mineral Oil) 133 ml [place] DAILYPRN PRN PRN Reason: Constipation Nitroglycerin (Nitrostat) 0.4 mg SL Q5MIN PRN PRN Reason: Chest Pain Ondansetron HCl (Zofran) 4 mg IVP Q6H PRN PRN Reason: Nausea/Vomiting Polyethylene Glycol (Miralax) 17 gm PO DAILY [facility] Last Admin: 12/09/17 10:10 Dose: 17 gm Potassium Chloride (Klor-Con 10) 10 meq PO QA-[facility]
[2017-12-09] MEDS: Simethicone Chewable 80 MG TAB PO PRN ×2 (17:23→23:23)
[2017-12-09] MEDS: Lactated Ringer's 1,000 ML IV SCH (19:27)
[2017-12-09] MEDS: Atorvastatin Calcium 20 MG TAB PO SCH (20:55)
[2017-12-10] MEDS: Ketorolac Tromethamine 30 MG/ML VIAL IVP SCH ×2 (06:14→12:21)
[2017-12-10] MEDS: Simethicone Chewable 80 MG TAB PO PRN (06:15)
[2017-12-10] MEDS: Polyethylene Glycol 3350 17 GM Packet PO SCH (08:07)
[2017-12-10] MEDS: Aspirin 325 mg Enteric Coated Tablet PO SCH (08:07)
[2017-12-10] MEDS: Loratadine 10 MG TAB PO SCH (08:07)
[2017-12-10] MEDS: Clopidogrel Bisulfate 75 MG TAB PO SCH (08:07)
[2017-12-10] MEDS: Potassium Chloride 10 MEQ TAB PO SCH (08:07)
[2017-12-10] MEDS: Furosemide 40 MG TAB PO SCH ×2 (08:07→17:16)
[2017-12-10] MEDS: Famotidine 20 MG TAB PO SCH ×2 (08:07→21:35)
--- NOTE | 2017-12-10 11:12 | RAD ---
PORTABLE CHEST: Date: 12/10/17 PROVIDED CLINICAL HISTORY: Shortness of breath. FINDINGS: Comparison is made with the study dated 12/09/17. Cardiac and mediastinal silhouette is unchanged in appearance. Median sternotomy changes are again se en. Elevation of the left hemidiaphragm is again noted. Right-sided central line is again seen in sim ilar position. No evidence for pneumothorax. IMPRESSION: Stable radiographic appearance of the chest. POS: [facility]
--- NOTE | 2017-12-10 11:18 | PDOC.PN ---
- Subjective Encounter Start Date: 12/10/17 Encounter Start Time: 09:40 pt had gas feeling in stomach and that improved after BM no chest pain, no dyspnea, no dizziness, no fever - Objective Vital Signs & Weight: Vital Signs (12 hours) Temp Pulse Resp BP Pulse Ox 12/10/17 09:00 98.3 F 12/10/17 08:00 98.3 F 79 18 106/72 92 L 12/10/17 03:00 98 F Weight Weight 280 lb 6.848 oz Most Recent Monitor Data Heart Rate from ECG 77 NIBP 106/72 NIBP BP-Mean 82 Respiration from ECG 19 SpO2 90 I&O: 12/09/17 12/10/17 12/11/17 06:59 06:59 06:59 Intake Total 1201.4 1310 300 Output Total 1580 1980 500 Balance -378.6 -670 -200 Result Diagrams: 12/09/17 04:21 12/09/17 04:21 EKG Reviewed by me: Yes (pvcs) Phys Exam - Physical Examination Constitutional: NAD HEENT: PERRLA, moist MMs, sclera anicteric Neck: no JVD, supple Respiratory: no wheezing, no rales, no rhonchi Cardiovascular: RRR, no significant murmur, no rub surgical site is clean Gastrointestinal: soft, non-tender, no distention, positive bowel sounds Musculoskeletal: no edema, pulses present Neurological: non-focal, normal sensation, moves all 4 limbs Psychiatric: normal affect, A&O x 3 Skin: no rash, normal turgor Dx/Plan (1) S/P CABG (coronary artery bypass graft) Code(s): Z95.1 - PRESENCE OF AORTOCORONARY BYPASS GRAFT Status: Acute (2) CAD (coronary artery disease) Code(s): I25.10 - ATHSCL HEART DISEASE OF [place] CORONARY ARTERY W/O ANG PCTRS Status: Acute (3) HLD (hyperlipidemia) Code(s): E78.5 - HYPERLIPIDEMIA, UNSPECIFIED Status: Acute (4) HTN (hypertension) Code(s): I10 - ESSENTIAL (PRIMARY) HYPERTENSION Status: Acute (5) Unstable angina Status: Acute - Plan cont current plan of care * medication reviewed as below * symptomatic treatment * cardiology and CT surgeon following * will adjust cardiac medication. Review of Systems - Review of Systems Constitutional: negative: fever, chills, sweats, weakness, malaise, other Eyes: negative: Pain, Vision Change, Conjunctivae Inflammation, Eyelid Inflammation, Redness, Other ENT: negative: Ear Pain, Ear Discharge, Nose Pain, Nose Discharge, Nose Congestion, Mouth Pain, Mouth Swelling, Throat Pain, Throat Swelling, Other Respiratory: negative: Cough, Dry, Shortness of Breath, Hemoptysis, SOB with Excertion, Pleuritic Pain, Sputum, Wheezing Cardiovascular: negative: chest pain, palpitations, orthopnea, paroxysmal nocturnal dyspnea, edema, light headedness, other Gastrointestinal: negative: Nausea, Vomiting, Abdominal Pain, Diarrhea, Constipation, Melena, Hematochezia, Other Genitourinary: negative: Dysuria, Frequency, Incontinence, Hematuria, Retention , Other Musculoskeletal: negative: Neck Pain, Shoulder Pain, Arm Pain, Back Pain, Hand Pain, Leg Pain, Foot Pain, Other Skin: negative: Rash, Lesions, Luis, Bruising, Other Neurological: negative: Weakness, Numbness, Incoordination, Change in Speech, Confusion, Seizures, Other - Medications/Allergies Allergies/Adverse Reactions: Allergies Allergy/AdvReac Type Severity Reaction Status Date / Time tomato AdvReac Diarrhea Verified 11/17/17 12:42 Medications: Current Medications Acetaminophen (Tylenol) 650 mg PO Q6H PRN PRN Reason: Headache/Fever or Pain Hydrocodone Bitart/Acetaminophen ([place] 5/325) 1 tab PO Q4H PRN PRN Reason: Moderate Pain (4-6) Hydrocodone Bitart/Acetaminophen ([place] 5/325) 2 tab PO Q4H PRN PRN Reason: Severe Pain (7-10) Al Hydroxide/Mg Hydroxide (Maalox) 30 ml PO Q4H PRN PRN Reason: Indigestion Albuterol/Ipratropium (Duoneb) 3 ml NEB [id number] PRN PRN Reason: Respiratory Distress Aspirin (Ecotrin) 325 mg PO DAILY [facility] Last Admin: 12/10/17 08:07 Dose: 325 mg Atorvastatin Calcium (Lipitor) 20 mg PO HS [facility] Last Admin: 12/09/17 20:55 Dose: 20 mg Bisacodyl (Dulcolax) 10 mg PO Q12H PRN PRN Reason: Constipation Bisacodyl (Dulcolax) 10 mg [place] Q12H PRN PRN Reason: Constipation Clopidogrel Bisulfate (Plavix) 75 mg PO DAILY [facility] Last Admin: 12/10/17 08:07 Dose: 75 mg Diphenhydramine HCl (Benadryl) 25 mg PO Q6H PRN PRN Reason: Itching & Insomnia or Francisco [employer] Maxx Famotidine (Pepcid) 20 mg PO BID [facility] Last Admin: 12/10/17 08:07 Dose: 20 mg Fentanyl (Sublimaze) 25 mcg SLOW IVP Q2H PRN PRN Reason: Moderate breakthrough pain Fentanyl (Sublimaze) 50 mcg SLOW IVP Q2H PRN PRN Reason: Severe breakthrough pain Furosemide (Lasix) 40 mg PO DAILY [facility] Last Admin: 12/10/17 08:07 Dose: 40 mg Guaifenesin/Dextromethorphan (Robitussin Dm) 15 ml PO Q4H PRN PRN Reason: Cough Ketorolac Tromethamine (Toradol) 15 mg IVP Q6HR [facility] Stop: 12/10/17 12:01 Last Admin: 12/10/17 06:14 Dose: 15 mg Loratadine (Claritin) 10 mg PO DAILYPRN [facility] Last Admin: 12/10/17 08:07 Dose: 10 mg Magnesium Hydroxide (Milk Of Magnesium) 30 ml PO Q12H PRN PRN Reason: Constipation Mineral Oil (Fleet Mineral Oil) 133 ml [place] DAILYPRN PRN PRN Reason: Constipation Nitroglycerin (Nitrostat) 0.4 mg SL Q5MIN PRN PRN Reason: Chest Pain Ondansetron HCl (Zofran) 4 mg IVP Q6H PRN PRN Reason: Nausea/Vomiting Last Admin: 12/09/17 23:24 Dose: 4 mg Polyethylene Glycol (Miralax) 17 gm PO DAILY [facility] Last Admin: 12/10/17 08:07 Dose: Not Given Potassium Chloride (Klor-Con 10) 10 meq PO QAM-WM [facility] Last Admin: 12/10/17 08:07 Dose: 10 meq Simethicone (Mylicon Chewable) 120 mg PO Q6H PRN PRN Reason: Gas Pain Last Admin: 12/10/17 06:15 Dose: 120 mg Sodium Chloride (Flush - Normal Saline) 10 ml IVF Q12HR [facility] Last Admin: 12/10/17 08:07 Dose: 10 ml Sodium Chloride (Flush - Normal Saline) 10 ml IVF PRN PRN PRN Reason: Saline Flush
[2017-12-10] MEDS ORDERED: Furosemide 40 MG TAB PO SCH (12:15)
--- NOTE | 2017-12-10 17:05 | EKG ---
Test Reason : Blood Pressure : / mmHG Vent. Rate : 068 BPM Atrial Rate : 068 BPM P-R Int : 202 ms QRS Dur : 100 ms QT Int : 456 ms P-R-T Axes : 046 -02 040 degrees QTc Int : 484 ms Normal sinus rhythm Possible Inferior infarct , age undetermined Prolonged QT Abnormal ECG When compared with ECG of 06-DEC-2017 13:03, (Unconfirmed) QT has lengthened Confirmed by BECKY MITCHELL, SAdrian ([id number]) on 12/10/2017 5:05:17 PM Referred By: LAUREN Confirmed By:DR. Georgiaan PENA MD
--- NOTE | 2017-12-10 19:58 | PDOC.CTH ---
Cardiology Progress Note - Subjective he is doing well. he has had BM's and he has been walking with CR. - Objective Vital Signs Temp Pulse Pulse Pulse Resp BP BP 12/10/17 19:09 98.1 F 86 20 12/10/17 17:41 98.2 F 85 16 12/10/17 16:49 85 119/67 12/10/17 16:00 98.5 F 12/10/17 13:07 89 81 132/68 106/72 12/10/17 12:00 97.7 F 85 19 12/10/17 09:00 98.3 F 12/10/17 08:00 98.3 F 79 18 BP Pulse Ox Pulse Ox Pulse Ox 12/10/17 19:09 103/62 94 L 12/10/17 17:41 131/75 94 L 12/10/17 16:49 12/10/17 16:00 12/10/17 13:07 95 93 L 12/10/17 12:00 110/68 94 L 12/10/17 09:00 12/10/17 08:00 106/72 92 L Weight 276 lb 12/09/17 12/10/17 12/11/17 06:59 06:59 06:59 Intake Total 1201.4 1310 940 Output Total 1580 1980 1052 Balance -378.6 -670 -112 - Physical Examination General/Neuro: alert & oriented x3, NAD Neck: no JVD present Lungs: unlabored respirations Heart: RRR Abdomen: NT/ND Extremities: + edema B (1+) - Telemetry Telemetry Rhythm: NSR - Labs Result Diagrams: 12/09/17 04:21 12/09/17 04:21 Troponin/CKMB CK-MB (CK-2) 4.2 ng/mL (0-6.6) 12/06/17 08:10 Troponin I Less than 0.010 ng/mL (< 0.028) 12/06/17 14:15 - Assessment/Plan 1. Multivessel CAD. 2. S/P CABG. 3. Station intolerance. PLAN: - Will start low dose Coreg. - ACEI once BP allows. - Aspirin and Zetia. - On Plavix. - Increase PT as tolerated. - May transfer to telemetry.
[2017-12-10] MEDS: Atorvastatin Calcium 20 MG TAB PO SCH (21:35)
[2017-12-11] MEDS ORDERED: Fleet Enema 133 ML BOT PR SCH (09:00)
[2017-12-11] MEDS: Clopidogrel Bisulfate 75 MG TAB PO SCH (09:43)
[2017-12-11] MEDS: Famotidine 20 MG TAB PO SCH (09:44)
[2017-12-11] MEDS: Potassium Chloride 10 MEQ TAB PO SCH (09:44)
[2017-12-11] MEDS: Aspirin 325 mg Enteric Coated Tablet PO SCH (09:44)
[2017-12-11] MEDS: Polyethylene Glycol 3350 17 GM Packet PO SCH (09:44)
[2017-12-11] MEDS: Furosemide 40 MG TAB PO SCH ×4 (09:45→18:17)
--- NOTE | 2017-12-11 09:53 | PDOC.PN ---
- Subjective Encounter Start Date: 12/11/17 Encounter Start Time: 07:20 pt does not have BM for last few days, he has abdominal distention and he feels shortness of breath Patient seen and examined. No overnight events - Objective MAR Reviewed: Yes Vital Signs & Weight: Vital Signs (12 hours) Temp Pulse Resp BP Pulse Ox 12/11/17 07:15 98 F 80 20 143/63 H 93 L 12/11/17 04:16 98.2 F 77 18 130/67 98 12/10/17 23:43 98.2 F 82 20 115/63 93 L Weight Weight 274 lb 3.2 oz Most Recent Monitor Data Heart Rate from ECG 88 NIBP 113/72 NIBP BP-Mean 89 Respiration from ECG 23 SpO2 97 I&O: 12/10/17 12/11/17 12/12/17 06:59 06:59 06:59 Intake Total 1310 940 Output Total 1980 1052 Balance -670 -112 Result Diagrams: 12/09/17 04:21 12/09/17 04:21 Radiology Reviewed by me: Yes (xray abdomen) EKG Reviewed by me: Yes Phys Exam - Physical Examination Constitutional: NAD HEENT: PERRLA, moist MMs, sclera anicteric Neck: no JVD, supple Respiratory: no wheezing, no rales, no rhonchi reduced air entry at base Cardiovascular: RRR, no significant murmur, no rub surgical site is clean Gastrointestinal: soft, positive bowel sounds gaseous distention Musculoskeletal: no edema, pulses present Neurological: non-focal, normal sensation, moves all 4 limbs Lymphatic: no nodes Psychiatric: normal affect, A&O x 3 Skin: no rash, normal turgor Dx/Plan (1) S/P CABG (coronary artery bypass graft) Code(s): Z95.1 - PRESENCE OF AORTOCORONARY BYPASS GRAFT Status: Acute (2) CAD (coronary artery disease) Code(s): I25.10 - ATHSCL HEART DISEASE OF [place] CORONARY ARTERY W/O ANG PCTRS Status: Acute (3) HLD (hyperlipidemia) Code(s): E78.5 - HYPERLIPIDEMIA, UNSPECIFIED Status: Acute (4) HTN (hypertension) Code(s): I10 - ESSENTIAL (PRIMARY) HYPERTENSION Status: Acute (5) Unstable angina Status: Acute (6) Abdominal distension Code(s): R14.0 - ABDOMINAL DISTENSION (GASEOUS) Status: Acute (7) Constipation Code(s): K59.00 - CONSTIPATION, UNSPECIFIED Status: Acute (8) Obesity (BMI 30-39.9) Code(s): E66.9 - OBESITY, UNSPECIFIED Status: Chronic - Plan cont current plan of care, incentive spirometry, out of bed/ambulate * xray abdomen ordered and reviewed * will give fleet enema * duoneb scheduled q 6 hrly * incentive spirometry * medication reviewed as below * symptomatic treatment. Review of Systems - Review of Systems Constitutional: weakness. negative: fever, chills, sweats, malaise, other ENT: negative: Ear Pain, Ear Discharge, Nose Pain, Nose Discharge, Nose Congestion, Mouth Pain, Mouth Swelling, Throat Pain, Throat Swelling, Other Respiratory: SOB with Excertion. negative: Cough, Dry, Shortness of Breath, Hemoptysis, Pleuritic Pain, Sputum, Wheezing Cardiovascular: negative: chest pain, palpitations, orthopnea, paroxysmal nocturnal dyspnea, edema, light headedness, other Gastrointestinal: Abdominal Pain, Constipation. negative: Nausea, Vomiting, Diarrhea, Melena, Hematochezia, Other Genitourinary: negative: Dysuria, Frequency, Incontinence, Hematuria, Retention , Other Musculoskeletal: negative: Neck Pain, Shoulder Pain, Arm Pain, Back Pain, Hand Pain, Leg Pain, Foot Pain, Other Skin: negative: Rash, Lesions, Luis, Bruising, Other Neurological: negative: Weakness, Numbness, Incoordination, Change in Speech, Confusion, Seizures, Other - Medications/Allergies Allergies/Adverse Reactions: Allergies Allergy/AdvReac Type Severity Reaction Status Date / Time tomato AdvReac Diarrhea Verified 11/17/17 12:42 Medications: Current Medications Acetaminophen (Tylenol) 650 mg PO Q6H PRN PRN Reason: Headache/Fever or Pain Hydrocodone Bitart/Acetaminophen ([place] 5/325) 1 tab PO Q4H PRN PRN Reason: Moderate Pain (4-6) Hydrocodone Bitart/Acetaminophen ([place] 5/325) 2 tab PO Q4H PRN PRN Reason: Severe Pain (7-10) Last Admin: 12/10/17 21:35 Dose: 2 tab Al Hydroxide/Mg Hydroxide (Maalox) 30 ml PO Q4H PRN PRN Reason: Indigestion Albuterol/Ipratropium (Duoneb) 3 ml NEB [id number] [facility] Aspirin (Ecotrin) 325 mg PO DAILY [facility] Last Admin: 12/11/17 09:44 Dose: 325 mg Atorvastatin Calcium (Lipitor) 20 mg PO HS [facility] Last Admin: 12/10/17 21:35 Dose: 20 mg Bisacodyl (Dulcolax) 10 mg PO Q12H PRN PRN Reason: Constipation Bisacodyl (Dulcolax) 10 mg [place] Q12H PRN PRN Reason: Constipation Clopidogrel Bisulfate (Plavix) 75 mg PO DAILY [facility] Last Admin: 12/11/17 09:43 Dose: 75 mg Diphenhydramine HCl (Benadryl) 25 mg PO Q6H PRN PRN Reason: Itching & Insomnia or Francisco J Maxx Famotidine (Pepcid) 20 mg PO BID [facility] Last Admin: 12/11/17 09:44 Dose: 20 mg Fentanyl (Sublimaze) 25 mcg SLOW IVP Q2H PRN PRN Reason: Moderate breakthrough pain Fentanyl (Sublimaze) 50 mcg SLOW IVP Q2H PRN PRN Reason: Severe breakthrough pain Furosemide (Lasix) 40 mg PO 0900,1400 [facility] Stop: 12/11/17 14:01 Last Admin: 12/11/17 09:45 Dose: 40 mg Guaifenesin/Dextromethorphan (Robitussin Dm) 15 ml PO Q4H PRN PRN Reason: Cough Loratadine (Claritin) 10 mg PO DAILYPRN [facility] Last Admin: 12/10/17 08:07 Dose: 10 mg Magnesium Hydroxide (Milk Of Magnesium) 30 ml PO Q12H PRN PRN Reason: Constipation Mineral Oil (Fleet Mineral Oil) 133 ml [place] DAILYPRN PRN PRN Reason: Constipation Nitroglycerin (Nitrostat) 0.4 mg SL Q5MIN PRN PRN Reason: Chest Pain Ondansetron HCl (Zofran) 4 mg IVP Q6H PRN PRN Reason: Nausea/Vomiting Last Admin: 12/09/17 23:24 Dose: 4 mg Polyethylene Glycol (Miralax) 17 gm PO DAILY [facility] Last Admin: 12/11/17 09:44 Dose: 17 gm Potassium Chloride (Klor-Con 10) 10 meq PO QAM-WM [facility] Last Admin: 12/11/17 09:44 Dose: 10 meq Simethicone (Mylicon Chewable) 120 mg PO Q6H PRN PRN Reason: Gas Pain Last Admin: 12/10/17 06:15 Dose: 120 mg Sodium Biphosphate/Sodium Phosphate (Fleet Enema) 133 ml [place] [facility] Stop: 12/11/17 11:00 Sodium Chloride (Flush - Normal Saline) 10 ml IVF Q12HR [facility] Last Admin: 12/11/17 09:51 Dose: 10 ml Sodium Chloride (Flush - Normal Saline) 10 ml IVF PRN PRN PRN Reason: Saline Flush
--- NOTE | 2017-12-11 10:52 | RAD ---
KUB: Date: 12/11/17 PROVIDED CLINICAL HISTORY: Abdominal distention. FINDINGS: Comparison with 12/10/16. There is conspicuous gaseous distention of both small and large bowel in an overall nonspecific olivia r. The supine nature of the study limits sensitivity for detection of pneumoperitoneum. Lung bases ar e not included on this study. No suspicious calcifications are radiographically apparent. IMPRESSION: Generalized gaseous distention of bowel in a nonspecific manner. POS: [facility]
[2017-12-11] MEDS ORDERED: Acetaminophen 1,000 MG in Premix Bag 1 BAG IVPB PRN (13:23)
[2017-12-11 14:16] LABS: Hemoglobin 12.3 g/dL (14.0-18.0); Mean Corpuscular HGB CONC 33.6 g/dL (32.0-36.0); Mean Corpuscular Hemoglobin 32.9 pg (27.0-31.0); Mean Platelet Volume 6.6 fL (7.4-10.4); Platelet Count 181 thou/uL (130-400); Red Blood Cell (RBC) Count 3.75 mill/uL (4.70-6.10); White Blood Cell (WBC) Count 6.8 thou/uL (4.8-10.8)
[2017-12-11 14:30] LABS: Band 6 % (5-11); Eosinophils 6 % (0-10); Lymphocytes 13 % (21-51); MDiff Complete? YES; Monocytes 8 % (0-10); Neutrophil 63 % (42-75); PLT Morphology Comment Appears Adequate; Polychromasia SLIGHT = 2-3 cells (100X) (0-2/hpf); Reactive Lymphocytes 4 % (0-10)
[2017-12-11 14:39] LABS: ALT (SGPT) 19 U/L (8-55); AST (SGOT) 22 U/L (5-34); Albumin 3.7 g/dL (3.4-4.8); Alkaline Phosphatase 60 U/L (40-150); Anion Gap 12 mmol/L (10-20); BUN (Urea Nitrogen) 14 mg/dL (8.4-25.7); Bilirubin, Total 0.8 mg/dL (0.2-1.2); Calc. Creatinine Clearance 168 mL/min (70-130); Carbon Dioxide 28 mmol/L (23-31); Chloride 101 mmol/L (98-107); Estimated GFR-MDRD Greater than 90; Globulin 2.9 g/dL (2.4-3.5); Glucose 123 mg/dL (80-115); Magnesium 2.2 mg/dL (1.6-2.6); Phosphorus 3.9 mg/dL (2.3-4.7); Potassium 3.5 mmol/L (3.5-5.1); Protein, Total 6.6 g/dL (5.8-8.1); Sodium 137 mmol/L (136-145)
--- NOTE | 2017-12-11 16:21 | RAD ---
PORTABLE SUPINE AP ABDOMINAL RADIOGRAPH: Date: 12/11/17 HISTORY: Evaluate nasogastric tube placement. COMPARISON: 12/11/17 at 0915 hours. FINDINGS: There is elevation of the left hemidiaphragm. As noted on the prior study, there is prominent gaseous distention of the colon. A nasogastric tube is noted in place with tip overlying the expected locati on of the gastric fundus. There is acute angulation of the distal portion of the nasogastric tube. A right subclavian central venous catheter, which was noted on study of 12/10/17, is again seen with ti p overlying the expected location of the right atrium. Median sternotomy wires are seen. No other int erval change. IMPRESSION: 1. Nasogastric tube noted in place with tip overlying expected location of the gastric fundus. There is acute angulation of the distal portion of the nasogastric tube. 2. Prominent gaseous distention of the colon, which was also seen on views of the abdomen obtained e louann this morning. POS: [facility]
[2017-12-11] MEDS ORDERED: Amiodarone In Dextrose 200 ML IVPB SCH (16:45)
--- NOTE | 2017-12-11 16:48 | PDOC.CTH ---
Cardiology Progress Note - Subjective he is complaining of abdominal distention and has not had a BM. He is passing small amounts of gas. No chest pain. - Objective Vital Signs Temp Pulse Pulse Pulse Resp BP BP 12/11/17 15:18 98 118 H 135/68 130/69 12/11/17 15:15 98.1 F 80 18 12/11/17 12:39 87 80 136/72 133/63 12/11/17 12:34 98.6 F 77 20 12/11/17 10:29 85 20 12/11/17 08:15 98 F 85 20 12/11/17 07:15 98 F 80 20 BP Pulse Ox Pulse Ox Pulse Ox 12/11/17 15:18 94 L 12/11/17 15:15 127/59 L 96 12/11/17 12:39 98 92 L 12/11/17 12:34 133/59 L 89 L 12/11/17 10:29 95 12/11/17 08:15 95 12/11/17 07:15 143/63 H 93 L Weight 274 lb 3.2 oz 12/10/17 12/11/17 12/12/17 06:59 06:59 06:59 Intake Total 1310 940 Output Total 1980 1052 Balance -670 -112 - Physical Examination General/Neuro: alert & oriented x3 Neck: no JVD present Lungs: CTA, unlabored respirations Heart: RRR Abdomen: other: (distended, + BS. ) Extremities: + edema B (trace) - Telemetry Telemetry Rhythm: NSR, Afib - Labs Result Diagrams: 12/11/17 14:10 12/11/17 14:10 Troponin/CKMB CK-MB (CK-2) 4.2 ng/mL (0-6.6) 12/06/17 08:10 Troponin I Less than 0.010 ng/mL (< 0.028) 12/06/17 14:15 - Assessment/Plan 1. Multivessel CAD. 2. S/P CABG. 3. Station intolerance. 4. Post op afib. Currently in sinus. PLAN: - Will start an amiodarone drip as he cannot have PO for now due to possible ileus. and switch to PO once able to take pills. - ASA/ZETI/ACEI and BB once able to tolerate PO. - Bowel rest. - IV fluids.
[2017-12-11] MEDS ORDERED: Amiodarone HCl 450 MG, Admixture Fee 1 EACH in Dextrose 5% in Water 250 ML IVPB SCH ×3 (17:15)
[2017-12-11] MEDS: Sodium Chloride 0.9% 1,000 ML IV SCH (18:15)
--- NOTE | 2017-12-11 21:40 | CON ---
DATE OF CONSULTATION: 12/11/2017 REASON FOR CONSULTATION: Abdominal distention, abnormal GI imaging. CONSULTING PHYSICIAN: Dr. Boyle. HISTORY OF PRESENT ILLNESS: The patient is a 61-year-old male with past medical history of hyperlipi demia, nephrolithiasis, and coronary artery disease status post percutaneous coronary intervention st ent placement x3 and recent coronary artery bypass graft on 12/07/2017, presenting with increased abd ominal distention. The patient was initially admitted for increased shortness of breath that was fel t to be due to his severe coronary artery disease and had been scheduled for CABG that was expedited to where the procedure was done on 12/07/2017. In the immediate postoperative period, the patient wa s doing well; however, over the last 24 hours, he has exhibited increased abdominal distention and sh ortness of breath due to this increased abdominal girth. He states that he is still able to pass gas and has had some small liquid bowel movements with improvement of his abdominal distention since hav ing an enema, but has been slowly returning over the last 6-8 hours as well. Currently, denies any n ausea, vomiting, fevers, chills, GI bleeding, odynophagia or dysphagia. Of note, in the immediate perioperative period, he had been placed on hydrocodone for pain control an d had been doing well on this particular regimen, but denied any significant bowel movements, shortly after the surgery. REVIEW OF SYSTEMS: A 10-point review category review of systems was obtained with all responses nega tive except for the pertinent positives as listed in the HPI. PAST MEDICAL HISTORY: As per HPI. PAST SURGICAL HISTORY: Cholecystectomy, renal stone removal, hydrocele repair, right inguinal hernia repair, lymph node biopsy, sinus surgery and coronary artery bypass graft. FAMILY HISTORY: Coronary artery disease in his father. Denies any GI malignancy. SOCIAL HISTORY: Denies any tobacco, alcohol or illicit drug use. OUTPATIENT MEDICATIONS: Reviewed. ALLERGIES: TOMATO. PHYSICAL EXAMINATION: VITAL SIGNS: Temperature of 98.1, pulse 80, blood pressure 130/69, respiratory rate 18, satting 92% on 2 liters nasal cannula. GENERAL: The patient is lying in bed, in mild distress. He is alert and oriented x4. NECK: Supple. No JVD noted. CARDIOVASCULAR: Regular rate and rhythm with no discernible murmurs, gallops or rubs. CHEST: Sternotomy sutures seen that were well healing with no wound breakdown or purulence. RESPIRATORY: Clear to auscultation bilaterally with no discernible wheezes or rales. ABDOMEN: Normoactive bowel sounds, soft, mild tenderness to palpation in all abdominal quadrants. M ild to moderate distention also noted. EXTREMITIES: No cyanosis, clubbing or edema. Suture seen in the left upper extremity forearm and ri ght lower extremity batista consistent with sites of graft harvesting for CABG. LABORATORY DATA: CBC with a white blood cell count of 11.1, hemoglobin 11.5, hematocrit 33.6, platel ets 123. Chemistry with a sodium 136, potassium 4.1, chloride 104, CO2 27, BUN 15, creatinine 0.73, glucose 125. IMAGING DATA: KUB obtained on 12/11/2017 showed distention of both small and large bowel in a nonspe cific matter with no transition point consistent with obstruction. ASSESSMENT AND PLAN: The patient is a 61-year-old male with past medical history of hyperlipidemia, nephrolithiasis, coronary artery disease status post percutaneous coronary intervention x3 and more r ecently with coronary artery bypass graft performed on 12/07/2017, presenting with colonic ileus cons istent with postoperative ileus. Postoperative ileus: The patient is presenting with coronary artery bypass graft performed on 2017, with no immediate perioperative complications. He was subsequently placed on narcotics for melissa n control and had been doing well on this regimen until approximately 24 hours ago when he experience d increased abdominal distention and shortness of breath associated with this abdominal distention. KUB obtained on 12/11/2017, showed distention of both the small and large bowel consistent without tr ansition point making an ileus, the most likely diagnosis at this time. Given his increased abdomina l girth, shortness of breath and enlargement of the cecum on KUB decompression of the GI tract is ind icated either by mechanical (NG tube) route or medication (neostigmine). Given his recent CABG, Neos tigmine administration is not necessarily prudent at this time instead more conservative measures jeannie uld be taken. RECOMMENDATIONS: 1. We will place NG tube tonight and place it to low intermittent wall suction for mechanical decomp ression of the upper GI tract and hopefully the lower GI tract as well. 2. We would minimize narcotics as this could potentially contribute to the current postoperative ile us. 3. Continue to maintain normal electrolytes. 4. We would place the patient n.p.o. for now with small sips of ice and water. 5. We would obtain serial KUBs daily for evaluation of his abdominal distention and worsening. 6. If he continues to have worsening abdominal distention, could consider addition of naloxegol or n eostigmine for reversal of opioid effects on the gut and/or colonic decompression respectively. 7. Could also consider unprepped colonoscopy with placement of a colonic decompression tube, but wou ld refrain from using this currently and uses only as a last resort. We will continue to follow. Please call with any questions.
[2017-12-12] MEDS: Atorvastatin Calcium 20 MG TAB PO SCH ×2 (04:46→21:04)
[2017-12-12] MEDS: Sodium Chloride 0.9% 1,000 ML IV SCH ×2 (04:46→14:20)
[2017-12-12] MEDS: Famotidine 20 MG TAB PO SCH (04:47)
[2017-12-12] MEDS: Clopidogrel Bisulfate 75 MG TAB PO SCH (08:31)
[2017-12-12] MEDS: Potassium Chloride 10 MEQ TAB PO SCH (08:31)
[2017-12-12] MEDS: Aspirin 300 MG Suppository PR SCH (08:31)
[2017-12-12] MEDS: Polyethylene Glycol 3350 17 GM Packet PO SCH (08:32)
[2017-12-12] MEDS ORDERED: Famotidine 40 MG/4 ML VIAL SLOW IVP SCH (09:00)
--- NOTE | 2017-12-12 09:41 | PRG ---
DATE OF SERVICE: 12/12/2017 Mr. Sterling continues to have abdominal distention and no chest pain. He is starting to pass gas. PHYSICAL EXAMINATION: VITAL SIGNS: Blood pressure 146/77, pulse 80, it is regular. LUNGS: Clear. CARDIAC: Normal S1, normal S2. ABDOMEN: Soft, nontender. EXTREMITIES: There is no edema. The patient did have some atrial fibrillation last night with a rapid rate, back in sinus rhythm now. ASSESSMENT: 1. Postoperative ileus. 2. Post bypass surgery. 3. Paroxysmal atrial fibrillation on amiodarone intravenously. PLAN: 1. Continue intravenous amiodarone. 2. He is on a rectal aspirin and also Plavix orally. Continue his current medical regimen. 3. He also has NG tube in place still, still very distended.
--- NOTE | 2017-12-12 11:05 | PDOC.PN ---
- Subjective Encounter Start Date: 12/12/17 Encounter Start Time: 07:40 Patient seen and examined. No new complaints. No overnight events pt has NG tube, he has BM with gas only and liquid stool - Objective MAR Reviewed: Yes Vital Signs & Weight: Vital Signs (12 hours) Temp Pulse Resp BP Pulse Ox 12/12/17 08:00 98.4 F 82 20 95 12/12/17 07:18 98.4 F 82 20 146/77 H 95 12/12/17 06:56 79 18 93 L 12/12/17 03:40 97.3 F L 72 16 116/58 L 91 L 12/11/17 23:25 97.4 F L 76 16 122/62 100 12/11/17 23:19 93 L Weight Weight 602 lb 4.846 oz Most Recent Monitor Data Heart Rate from ECG 88 NIBP 113/72 NIBP BP-Mean 89 Respiration from ECG 23 SpO2 97 I&O: 12/11/17 12/12/17 12/13/17 06:59 06:59 06:59 Intake Total 940 900 Output Total 1052 875 Balance -112 25 Result Diagrams: 12/11/17 14:10 12/11/17 14:10 Radiology Reviewed by me: Yes (xray abdomen) EKG Reviewed by me: Yes Phys Exam - Physical Examination Constitutional: NAD HEENT: PERRLA, moist MMs, sclera anicteric NG tube+ Neck: no JVD, supple Respiratory: no wheezing, no rales, no rhonchi Cardiovascular: RRR, no significant murmur, no rub Gastrointestinal: soft, non-tender, no distention Musculoskeletal: no edema, pulses present Neurological: non-focal, normal sensation, moves all 4 limbs Lymphatic: no nodes Psychiatric: normal affect, A&O x 3 Skin: no rash, normal turgor Deviation from normal: surgical site clean Dx/Plan (1) S/P CABG (coronary artery bypass graft) Code(s): Z95.1 - PRESENCE OF AORTOCORONARY BYPASS GRAFT Status: Acute (2) CAD (coronary artery disease) Code(s): I25.10 - ATHSCL HEART DISEASE OF [place] CORONARY ARTERY W/O ANG PCTRS Status: Acute (3) HLD (hyperlipidemia) Code(s): E78.5 - HYPERLIPIDEMIA, UNSPECIFIED Status: Acute (4) HTN (hypertension) Code(s): I10 - ESSENTIAL (PRIMARY) HYPERTENSION Status: Acute (5) Unstable angina Status: Acute (6) Abdominal distension Code(s): R14.0 - ABDOMINAL DISTENSION (GASEOUS) Status: Acute (7) Constipation Code(s): K59.00 - CONSTIPATION, UNSPECIFIED Status: Acute (8) Obesity (BMI 30-39.9) Code(s): E66.9 - OBESITY, UNSPECIFIED Status: Chronic (9) Postoperative ileus Code(s): K91.89 - OTH POSTPROCEDURAL COMPLICATIONS AND DISORDERS OF DGSTV SYS; K56.7 - ILEUS, UNSPECIFIED Status: Acute - Plan cont current plan of care, plan discussed w/ family * medication reviewed as below * symptomatic treatment * continue NG tube with LIS * continue amiodarone drip. * continue lasix, continue ivf Review of Systems - Review of Systems Constitutional: negative: fever, chills, sweats, weakness, malaise, other ENT: negative: Ear Pain, Ear Discharge, Nose Pain, Nose Discharge, Nose Congestion, Mouth Pain, Mouth Swelling, Throat Pain, Throat Swelling, Other Respiratory: Shortness of Breath, SOB with Excertion. negative: Cough, Dry, Hemoptysis, Pleuritic Pain, Sputum, Wheezing Cardiovascular: negative: chest pain, palpitations, orthopnea, paroxysmal nocturnal dyspnea, edema, light headedness, other Gastrointestinal: negative: Nausea, Vomiting, Abdominal Pain, Diarrhea, Constipation, Melena, Hematochezia, Other Genitourinary: negative: Dysuria, Frequency, Incontinence, Hematuria, Retention , Other Musculoskeletal: negative: Neck Pain, Shoulder Pain, Arm Pain, Back Pain, Hand Pain, Leg Pain, Foot Pain, Other Skin: negative: Rash, Lesions, Luis, Bruising, Other - Medications/Allergies Allergies/Adverse Reactions: Allergies Allergy/AdvReac Type Severity Reaction Status Date / Time tomato AdvReac Diarrhea Verified 11/17/17 12:42 Medications: Current Medications Acetaminophen (Tylenol) 650 mg PO Q6H PRN PRN Reason: Headache/Fever or Pain Last Admin: 12/11/17 18:15 Dose: 650 mg Al Hydroxide/Mg Hydroxide (Maalox) 30 ml PO Q4H PRN PRN Reason: Indigestion Albuterol/Ipratropium (Duoneb) 3 ml NEB [id number] [facility] Last Admin: 12/12/17 06:56 Dose: 3 ml Aspirin (Aspirin) 300 mg WA DAILY [facility] Last Admin: 12/12/17 08:31 Dose: 300 mg Atorvastatin Calcium (Lipitor) 20 mg PO HS [facility] Last Admin: 12/12/17 04:46 Dose: Not Given Bisacodyl (Dulcolax) 10 mg PO Q12H PRN PRN Reason: Constipation Bisacodyl (Dulcolax) 10 mg WA Q12H PRN PRN Reason: Constipation Clopidogrel Bisulfate (Plavix) 75 mg PO DAILY [facility] Last Admin: 12/12/17 08:31 Dose: 75 mg Famotidine (Pepcid) 20 mg SLOW IVP BID [facility] Last Admin: 12/12/17 08:31 Dose: 20 mg Guaifenesin/Dextromethorphan (Robitussin Dm) 15 ml PO Q4H PRN PRN Reason: Cough Acetaminophen 1,000 mg/ Device 100 mls @ 400 mls/hr IVPB Q6H PRN PRN Reason: Fever/Mild Pain Stop: 12/12/17 13:24 Sodium Chloride (Normal Saline 0.9%) 1,000 mls @ 100 mls/hr IV .Q10H [facility] Last Admin: 12/12/17 04:46 Dose: 1,000 mls Amiodarone HCl 450 mg/Miscellaneous Medication 1 each/ Dextrose/Water 259 mls @ 0 mls/hr IVPB INF [facility]; As Directed PRN Reason: Protocol Loratadine (Claritin) 10 mg PO DAILYPRN [facility] Last Admin: 12/10/17 08:07 Dose: 10 mg Magnesium Hydroxide (Milk Of Magnesium) 30 ml PO Q12H PRN PRN Reason: Constipation Mineral Oil (Fleet Mineral Oil) 133 ml [place] DAILYPRN PRN PRN Reason: Constipation Nitroglycerin (Nitrostat) 0.4 mg SL Q5MIN PRN PRN Reason: Chest Pain Ondansetron HCl (Zofran) 4 mg IVP Q6H PRN PRN Reason: Nausea/Vomiting Last Admin: 12/09/17 23:24 Dose: 4 mg Polyethylene Glycol (Miralax) 17 gm PO DAILY [facility] Last Admin: 12/12/17 08:32 Dose: 17 gm Potassium Chloride (Klor-Con 10) 10 meq PO QAM-WM [facility] Last Admin: 12/12/17 08:31 Dose: 10 meq Simethicone (Mylicon Chewable) 120 mg PO Q6H PRN PRN Reason: Gas Pain Last Admin: 12/10/17 06:15 Dose: 120 mg Sodium Chloride (Flush - Normal Saline) 10 ml IVF Q12HR [facility] Last Admin: 12/12/17 08:32 Dose: 10 ml Sodium Chloride (Flush - Normal Saline) 10 ml IVF PRN PRN PRN Reason: Saline Flush
--- NOTE | 2017-12-12 11:50 | RAD ---
SUPINE AP ABDOMINAL RADIOGRAPH: 12/12/2017 HISTORY: Surveillance of colonic distention. COMPARISON: 12/11/2017 FINDINGS: There is partial visualization of a nasogastric tube in place, which does appear mildly withdrawn fro m the prior exam, with the distal portion of the nasogastric tube overlying the expected location of the proximal body of the stomach. The most proximal side may overly either the region of the gastric cardia or the GE junction; however, this is incompletely imaged. Again noted is gaseous distention and dilatation of the colon, similar to the prior exam. There is gas seen within loops of small elo l. No other interval change. IMPRESSION: Stable gaseous distention and dilatation of the colon. POS: [facility]
[2017-12-12] MEDS: Pantoprazole 40 MG VIAL IVP SCH (14:06)
--- NOTE | 2017-12-12 19:07 | PRG ---
DATE OF SERVICE: 12/12/2017 SUBJECTIVE: Mr. Sterling states he has had quite a bit of flatus overnight and today, passing a lot of gas. He has had a couple of scant bowel movements and the nurse confirms this. He has had very mini mal NG tube output. Nurses documented two bowel movements this morning. The patient states his abdomen feels better. He is a little bit hungry. He states that his abdomen looks a little more distended today. OBJECTIVE: VITAL SIGNS: Temperature is 97.2, pulse 77, blood pressure 143/67. NG tube is in place with coffee ground material there. It appears to be maybe at 50-60 cm at best. LUNGS: Clear. HEART: Regular rate and rhythm. ABDOMEN: Has scant bowel sounds. It is protuberant, mild, nontender and mildly distended. There is tympany. EXTREMITIES: No clubbing, cyanosis or edema. LABORATORY STUDIES: None today. Yesterday, he had normal magnesium, phosphorus and potassium. Norm al TSH. Electrolytes, normal CBC yesterday. ASSESSMENT: 1. Postoperative from coronary artery bypass grafting. 2. Ileus postoperative. 3. Some coffee ground return from his nasogastric tube. He is on Plavix. He is on aspirin. This u lcer prophylaxis is famotidine. PLAN: 1. We will clamp NG tube. It does not seem to be really adequately far enough down the stomach righ t now. I think the suction is causing irritation. It is not returning much. 2. We will change ulcer prophylaxis to PPI in light of the fact that he is on pretty strong blood th inners. 3. We will start liquids. 4. We will perform rectal examination to make sure there is no impaction. 5. We will start some methyl naltrexone equivalent to give him a little bit of bowel movement.
[2017-12-13] MEDS: Sodium Chloride 0.9% 1,000 ML IV SCH ×3 (00:45→21:15)
[2017-12-13] MEDS ORDERED: Vancomycin HCl 1 GM in Premix Bag 1 BAG IVPB SCH (08:30)
[2017-12-13] MEDS ORDERED: Magnesium 2 GM/NS 0.9% 100 ML 2 GM in Premix Bag 1 BAG IVPB SCH (10:15)
[2017-12-13] MEDS: Pantoprazole 40 MG VIAL IVP SCH (10:21)
[2017-12-13] MEDS: Aspirin 300 MG Suppository PR SCH (10:21)
--- NOTE | 2017-12-13 11:12 | PRG ---
DATE OF SERVICE: 12/13/2017 SUBJECTIVE: Mr. Sterling had the NG tube and is back up to suction, had a tremendous amount of NG aspir ate, still does not feel well. OBJECTIVE: VITAL SIGNS: Blood pressure 130/70, earlier it was 150 systolic now, pulse 70s. LUNGS: Clear. CARDIAC: Normal S1, S2. ABDOMEN: Soft, nontender. EXTREMITIES: There is no edema. ASSESSMENT: 1. Status post bypass surgery. 2. Hypertension. 3. Probable ileus. 4. Paroxysmal atrial fibrillation in sinus rhythm now. PLAN: 1. We will give intravenous Vasotec and his potassium still on the low side at 3.5. 2. Hold off on IV amiodarone unless he has recurrent fibrillation, which time we will give him amiod arone, but would prefer not to give it in the peripheral IV if we can avoid it. 3. Magnesium levels have been okay, but probably losing magnesium, we will give an extra dose of int ravenous magnesium.
--- NOTE | 2017-12-13 11:36 | PDOC.PN ---
- Subjective Encounter Start Date: 12/13/17 Encounter Start Time: 11:34 Patient seen and examined, at bedside, states he feels uncomfortable but no new issues. - Objective Vital Signs & Weight: Vital Signs (12 hours) Temp Pulse Resp BP Pulse Ox 12/13/17 07:41 96 12/13/17 07:39 77 24 H 96 12/13/17 04:00 98.3 F 77 17 130/70 98 12/13/17 03:52 96 12/13/17 00:09 58 L 18 96 12/13/17 00:00 98.3 F 82 16 151/65 H 94 L Weight Weight 602 lb 4.846 oz Most Recent Monitor Data Heart Rate from ECG 88 NIBP 113/72 NIBP BP-Mean 89 Respiration from ECG 23 SpO2 97 I&O: 12/12/17 12/13/17 12/14/17 06:59 06:59 06:59 Intake Total 900 1200 Output Total 875 Balance 25 1200 Result Diagrams: 12/11/17 14:10 12/11/17 14:10 Phys Exam - Physical Examination Constitutional: NAD HEENT: PERRLA, moist MMs, sclera anicteric NG tube Neck: no nodes, no JVD, supple Respiratory: no wheezing, no rales, no rhonchi Cardiovascular: RRR, no significant murmur, no rub surgical site C/D/I Gastrointestinal: soft, non-tender, no distention Musculoskeletal: pulses present, edema present (trace) Neurological: non-focal, normal sensation Dx/Plan (1) Abdominal distension Code(s): R14.0 - ABDOMINAL DISTENSION (GASEOUS) Status: Acute (2) CAD (coronary artery disease) Code(s): I25.10 - ATHSCL HEART DISEASE OF [place] CORONARY ARTERY W/O ANG PCTRS Status: Acute (3) HTN (hypertension) Code(s): I10 - ESSENTIAL (PRIMARY) HYPERTENSION Status: Acute (4) Postoperative ileus Code(s): K91.89 - OTH POSTPROCEDURAL COMPLICATIONS AND DISORDERS OF DGSTV SYS; K56.7 - ILEUS, UNSPECIFIED Status: Acute (5) S/P CABG (coronary artery bypass graft) Code(s): Z95.1 - PRESENCE OF AORTOCORONARY BYPASS GRAFT Status: Acute (6) Obesity (BMI 30-39.9) Code(s): E66.9 - OBESITY, UNSPECIFIED Status: Chronic - Plan * central line removed * patient givne 1 dose of vancomycin * cultures ordered, ID consulted * continue all other plan of care for now * case and plan d/w patient and at length, they understand and agree with this plan
[2017-12-13] MEDS: Enalaprilat Dihydrate 1.25 MG/ML VIAL SLOW IVP SCH ×2 (12:54→18:51)
[2017-12-13] MEDS ORDERED: Metoclopramide HCl 10 MG/2 ML VIAL IVP SCH (18:30)
--- NOTE | 2017-12-13 20:30 | PRG ---
DATE OF SERVICE: 12/13/2017 HISTORY OF PRESENT ILLNESS: Mr. Sterling last night began to feel full again, he did not throw up this morning. Dr. Boyle places NG tube to suction. The nurses report to me that it drained 400 mL. In t alking with Mr. Sterling, he states he has had 10 bowel movements today, about 5 in the bathroom which w ere of moderate size of soft liquid brown and several when he coughed just in bed. He states he feel s about the way he did yesterday. He has had no vomiting. All his narcotics have been stopped. He has had no plain films today. MEDICATIONS: Tylenol p.r.n., Maalox p.r.n., DuoNeb, aspirin, Bisacodyl, milk of magnesia, nitroglyce rin, Protonix IV daily, simethicone p.r.n., normal saline 100 an hour. PHYSICAL EXAMINATION: ABDOMEN: Patient has scant bowel sounds. NG tube in place and seems to be about 60 cm, it seems a l ittle bit far out. Bowel sounds are scant. Abdomen is tympanitic with no rebound or guarding. Slig ht hiccups. EXTREMITIES: There is no clubbing, cyanosis or edema. LABORATORY STUDIES: None today and none yesterday. ASSESSMENT: Ileus, probably colonic. He is having bowel movements. He has had some hiccups, no sig ns of sepsis. PLAN: 1. Advance NG tube. 2. Continue NG tube with intermittent wall suction. 3. Continue PPI. 4. Continue n.p.o., continue IV fluids, recheck labs tomorrow. 5. Start Reglan, continue aggressive ambulation.
[2017-12-14] MEDS: Enalaprilat Dihydrate 1.25 MG/ML VIAL SLOW IVP SCH ×5 (00:03→23:25)
[2017-12-14] MEDS: Metoclopramide HCl 10 MG/2 ML VIAL IVP SCH ×5 (00:03→23:25)
[2017-12-14] MEDS: Sodium Chloride 0.9% 1,000 ML IV SCH ×2 (00:10→22:47)
[2017-12-14 06:06] LABS: #Eosinphils 0.2 thou/uL (0.0-0.7); #Lymphocytes 1.2 thou/uL (1.20-3.40); #Monocytes 0.9 thou/uL (0.11-0.59); #Neutrophils 6.4 thou/uL (1.40-6.50); %Eosinophils 1.8 % (0.0-10.0); %Lymphocytes 13.3 % (21.0-51.0); %Monocytes 10.3 % (0.0-10.0); %Neutrophils 74.6 % (42.0-75.0); Hemoglobin 11.2 g/dL (14.0-18.0); Mean Corpuscular Hemoglobin 32.9 pg (27.0-31.0); Mean Corpuscular Volume 96.9 fl (80.0-94.0); Mean Platelet Volume 6.7 fL (7.4-10.4); Platelet Count 251 thou/uL (130-400); RBC Distribution Width 11.9 % (11.5-14.5); Red Blood Cell (RBC) Count 3.42 mill/uL (4.70-6.10); White Blood Cell (WBC) Count 8.6 thou/uL (4.8-10.8)
[2017-12-14 06:23] LABS: ALT (SGPT) 19 U/L (8-55); AST (SGOT) 22 U/L (5-34); Albumin 3.3 g/dL (3.4-4.8); Alkaline Phosphatase 63 U/L (40-150); Anion Gap 13 mmol/L (10-20); BUN (Urea Nitrogen) 9 mg/dL (8.4-25.7); Bilirubin, Total 0.7 mg/dL (0.2-1.2); Calc. Creatinine Clearance 203 mL/min (70-130); Calcium 8.7 mg/dL (7.8-10.44); Carbon Dioxide 23 mmol/L (23-31); Chloride 105 mmol/L (98-107); Estimated GFR-MDRD Greater than 90; Globulin 2.6 g/dL (2.4-3.5); Glucose 119 mg/dL (80-115); Magnesium 2.2 mg/dL (1.6-2.6); Phosphorus 3.7 mg/dL (2.3-4.7); Potassium 3.2 mmol/L (3.5-5.1); Protein, Total 5.9 g/dL (5.8-8.1); Sodium 138 mmol/L (136-145)
[2017-12-14] MEDS: Pantoprazole 40 MG VIAL IVP SCH (10:26)
[2017-12-14] MEDS: Aspirin 300 MG Suppository PR SCH (10:27)
--- NOTE | 2017-12-14 10:34 | RAD ---
UPRIGHT AND SUPINE FRONTAL IMAGING OF ABDOMEN AND PELVIS: DATE: 12/14/17. COMPARISON: 12/12/17. HISTORY: Ileus. FINDINGS: Midline sternotomy wires are present. There is a nasogastric tube extending into the superior medial epigastric region on the left. There is patchy linear density in the perihilar regions and both chintan g bases which could signify a degree of edema or infectious pneumonitis. There is a moderate degree of diffuse colonic distention with air fluid/air contrast levels throughou t the colon. No dilated small bowel is seen. IMPRESSION: There is moderate gaseous distention of the colon with air fluid levels within the colon suggesting i leus versus obstruction of the colon. Followup CT suggested. POS: [facility]
[2017-12-14 12:03] LABS: Actual Bicarbonate (HCO3a) 26.1 mEq/L (22-26); Analyzer IN Cardio OR; CO2 Tension 47.8 mmHg (35.0-45.0); Calcium, Ionized 1.2 mmol/L (1.12-1.30); Hematocrit-ABG 42.1 % (42.0-52.0); Hemoglobin (Hb) 15.1 g/dL (14.0-18.0); O2 Tension (PaO2) 380.9 mmHg (80.0-100.0); Puncture Site ALINE; pH, Arterial 7.36 (7.35-7.45)
[2017-12-14 12:04] LABS: Actual Bicarbonate (HCO3a) 23.3 mEq/L (22-26); Base Excess (BEa) -1.4 mEq/L (0 (+/-) 2.5); CO2 Tension 39.4 mmHg (35.0-45.0); Hematocrit-ABG 39.4 % (42.0-52.0); Hemoglobin (Hb) 14.3 g/dL (14.0-18.0); pH, Arterial 7.39 (7.35-7.45)
[2017-12-14 12:05] LABS: Actual Bicarbonate (HCO3v) 29 mEq/L (22-26); Analyzer IN Cardio OR; Hematocrit-VBG 30.5 % (39-50); Hemoglobin (Hb) 11.4 g/dL (13.1-17.2); pH (venous) 7.34 (7.35-7.45)
[2017-12-14 12:05] LABS: Analyzer IN Cardio OR; Calcium, Ionized 1.1 mmol/L (1.12-1.30); Puncture Site ALINE
[2017-12-14 12:06] LABS: Actual Bicarbonate (HCO3a) 28.1 mEq/L (22-26); Base Excess (BEa) 1.8 mEq/L (0 (+/-) 2.5); CO2 Tension 51.9 mmHg (35.0-45.0); Hematocrit-ABG 30.1 % (42.0-52.0); Hemoglobin (Hb) 11.4 g/dL (14.0-18.0); O2 Tension (PaO2) 430.1 mmHg (80.0-100.0); pH, Arterial 7.35 (7.35-7.45)
[2017-12-14 12:06] LABS: Calcium, Ionized 1.04 mmol/L (1.16-1.32); Chloride (ABG LAB) 101 mmol/L (98-106); Potassium - ABG Lab 5.1 mmol/L (3.70-5.30); Sodium 139.1 mmol/L (133-146)
[2017-12-14 12:07] LABS: Actual Bicarbonate (HCO3a) 26.9 mEq/L (22-26); Base Excess (BEa) 0.5 mEq/L (0 (+/-) 2.5); CO2 Tension 51.1 mmHg (35.0-45.0); Hematocrit-ABG 29.5 % (42.0-52.0); Hemoglobin (Hb) 11.2 g/dL (14.0-18.0); O2 Tension (PaO2) 402.3 mmHg (80.0-100.0); pH, Arterial 7.34 (7.35-7.45)
[2017-12-14 12:07] LABS: Analyzer IN Cardio OR; Puncture Site ALINE
[2017-12-14 12:08] LABS: Analyzer IN Cardio OR; Puncture Site ALINE
[2017-12-14 12:08] LABS: CO2 Tension 53.8 mmHg (35.0-45.0); O2 Tension (PaO2) 323.2 mmHg (80.0-100.0); pH, Arterial 7.31 (7.35-7.45)
[2017-12-14 12:09] LABS: pH, Arterial 7.36 (7.35-7.45)
[2017-12-14 12:09] LABS: Actual Bicarbonate (HCO3a) 26.6 mEq/L (22-26); Analyzer IN Cardio OR; Base Excess (BEa) -0.3 mEq/L (0 (+/-) 2.5); Calcium, Ionized 1.1 mmol/L (1.12-1.30); Hematocrit-ABG 31.9 % (42.0-52.0); Puncture Site ALINE
[2017-12-14 12:10] LABS: Actual Bicarbonate (HCO3a) 24.5 mEq/L (22-26); Analyzer IN Cardio OR; Base Excess (BEa) -1.1 mEq/L (0 (+/-) 2.5); CO2 Tension 44.6 mmHg (35.0-45.0); Calcium, Ionized 1.2 mmol/L (1.12-1.30); Hematocrit-ABG 33.1 % (42.0-52.0); Hemoglobin (Hb) 12.2 g/dL (14.0-18.0); O2 Tension (PaO2) 368.9 mmHg (80.0-100.0); Puncture Site ALINE
--- NOTE | 2017-12-14 12:19 | PDOC.PN ---
- Subjective Encounter Start Date: 12/14/17 Encounter Start Time: 12:18 Patient seen and examined, states he continues to have the same abdominal discomfort he has always had with no changes, no family at bedside, all questions answered. - Objective Vital Signs & Weight: Vital Signs (12 hours) Temp Pulse Pulse Pulse Resp BP BP 12/14/17 11:50 99.3 F 74 20 12/14/17 10:23 99 F 76 16 12/14/17 09:27 86 88 123/61 12/14/17 07:21 81 20 12/14/17 06:14 124/64 12/14/17 06:12 98.6 F 65 22 H 12/14/17 04:29 12/14/17 01:51 72 18 BP BP Pulse Ox Pulse Ox Pulse Ox 12/14/17 11:50 148/68 H 96 12/14/17 10:23 140/64 93 L 12/14/17 09:27 126/76 96 93 L 12/14/17 07:21 93 L 12/14/17 06:14 12/14/17 06:12 124/64 95 12/14/17 04:29 98 12/14/17 01:51 98 Weight Weight 272 lb Most Recent Monitor Data Heart Rate from ECG 88 NIBP 113/72 NIBP BP-Mean 89 Respiration from ECG 23 SpO2 97 I&O: 12/13/17 12/14/17 12/15/17 06:59 06:59 06:59 Intake Total 1200 2799 Output Total 900 Balance 1200 1899 Result Diagrams: 12/14/17 05:38 12/14/17 05:38 Phys Exam - Physical Examination mild distress HEENT: PERRLA, moist MMs, sclera anicteric NG tube present Neck: no nodes, no JVD Respiratory: no wheezing, no rales Cardiovascular: RRR, no significant murmur, no rub Gastrointestinal: soft, non-tender, no distention, positive bowel sounds rotund Musculoskeletal: pulses present, edema present (trace) Neurological: non-focal, normal sensation Dx/Plan (1) Abdominal distension Code(s): R14.0 - ABDOMINAL DISTENSION (GASEOUS) Status: Acute (2) CAD (coronary artery disease) Code(s): I25.10 - ATHSCL HEART DISEASE OF [place] CORONARY ARTERY W/O ANG PCTRS Status: Acute (3) HTN (hypertension) Code(s): I10 - ESSENTIAL (PRIMARY) HYPERTENSION Status: Acute (4) Postoperative ileus Code(s): K91.89 - OTH POSTPROCEDURAL COMPLICATIONS AND DISORDERS OF DGSTV SYS; K56.7 - ILEUS, UNSPECIFIED Status: Acute (5) S/P CABG (coronary artery bypass graft) Code(s): Z95.1 - PRESENCE OF AORTOCORONARY BYPASS GRAFT Status: Acute (6) Obesity (BMI 30-39.9) Code(s): E66.9 - OBESITY, UNSPECIFIED Status: Chronic - Plan * Continue with NG tube for now, keep NPO * patient still has ilieus * cultures pending from line removal yesterday * continue current plan of care with no changes * further management per subspecialists * case and plan d/w patient at length, he understands and agrees with this plan
[2017-12-14] MEDS ORDERED: ISOVUE-370 76%-LOCM 1 ML ONE (12:53)
--- NOTE | 2017-12-14 20:01 | CT ---
CT OF THE ABDOMEN AND PELVIS WITH CONTRAST: 12/14/17 COMPARISON: 06/30/16. HISTORY: Abdominal distention. Evaluate for ileus versus small bowel obstruction. TECHNIQUE: Multiple contiguous axial images were obtained in a CT of the abdomen and pelvis with contrast. PO co ntrast was administered. Coronal reformats were performed. FINDINGS: The liver, gallbladder, kidneys, adrenal glands, spleen, and pancreas are unremarkable. No free air, free fluid, stranding changes are seen in the abdomen or pelvis. The small bowel is normal in caliber. The contrast passes through the small bowel. The contrast has n ot yet completely passed to the terminal ileum. the colon contains fluid and is mildly enlarged along the right colon. No thickening of the wall of the colon is seen. No abdominal or pelvic lymphadenopathy are seen. Atherosclerotic calcifications are seen in the aorta . There is a small left pleural effusion and atelectasis in both lung bases. An NG tube is seen with it s tip in the stomach. The abdominal wall soft tissues are unremarkable. Degenerative changes are seen in the spine. IMPRESSION: 1. No evidence of acute intra-abdominal/pelvic abnormality. 2. Left pleural effusion and bibasilar atelectasis. POS: [facility]
[2017-12-15] MEDS: Sodium Chloride 0.9% 1,000 ML IV SCH (04:26)
[2017-12-15] MEDS: Enalaprilat Dihydrate 1.25 MG/ML VIAL SLOW IVP SCH (05:28)
[2017-12-15] MEDS: Metoclopramide HCl 10 MG/2 ML VIAL IVP SCH ×3 (05:28→16:58)
[2017-12-15] MEDS: Enoxaparin Sodium 40 MG/0.4 ML SYRINGE SC SCH (08:45)
[2017-12-15] MEDS: Losartan 25 MG TAB PO SCH (08:46)
[2017-12-15] MEDS: Aspirin 81 mg Enteric Coated Tablet PO SCH (08:46)
[2017-12-15] MEDS: Pantoprazole 40 MG VIAL IVP SCH (08:46)
--- NOTE | 2017-12-15 11:27 | PDOC.PN ---
- Subjective Encounter Start Date: 12/15/17 Encounter Start Time: 11:25 Patient seen and examined, sitting in chair comfortably, no new issues or complaints. All questions answered, no family at bedside. - Objective Vital Signs & Weight: Vital Signs (12 hours) Temp Pulse Resp BP BP Pulse Ox 12/15/17 08:46 98.6 F 96 16 92 L 12/15/17 07:40 98.6 F 96 16 118/70 92 L 12/15/17 06:23 79 22 H 91 L 12/15/17 05:28 148/68 H 12/15/17 03:26 98.5 F 72 16 139/65 93 L 12/15/17 01:09 75 18 94 L 12/15/17 00:44 94 L 12/14/17 23:27 97.9 F 80 20 146/59 H 94 L Weight Admit Weight 274 lb 11.2 oz Weight 273 lb Most Recent Monitor Data Heart Rate from ECG 88 NIBP 113/72 NIBP BP-Mean 89 Respiration from ECG 23 SpO2 97 I&O: 12/14/17 12/15/17 12/16/17 06:59 06:59 06:59 Intake Total 2799 Output Total 900 Balance 1899 Result Diagrams: 12/14/17 05:38 12/14/17 05:38 Phys Exam - Physical Examination Constitutional: NAD obese HEENT: PERRLA, moist MMs, sclera anicteric Neck: no nodes, no JVD, supple Respiratory: no wheezing, no rales, no rhonchi, clear to auscultation bilateral Cardiovascular: RRR, no significant murmur, no rub Gastrointestinal: soft, non-tender, no distention Musculoskeletal: pulses present, edema present Neurological: non-focal, normal sensation Dx/Plan (1) Abdominal distension Code(s): R14.0 - ABDOMINAL DISTENSION (GASEOUS) Status: Acute (2) CAD (coronary artery disease) Code(s): I25.10 - ATHSCL HEART DISEASE OF [place] CORONARY ARTERY W/O ANG PCTRS Status: Acute (3) HTN (hypertension) Code(s): I10 - ESSENTIAL (PRIMARY) HYPERTENSION Status: Acute (4) Postoperative ileus Code(s): K91.89 - OTH POSTPROCEDURAL COMPLICATIONS AND DISORDERS OF DGSTV SYS; K56.7 - ILEUS, UNSPECIFIED Status: Acute (5) S/P CABG (coronary artery bypass graft) Code(s): Z95.1 - PRESENCE OF AORTOCORONARY BYPASS GRAFT Status: Acute (6) Obesity (BMI 30-39.9) Code(s): E66.9 - OBESITY, UNSPECIFIED Status: Chronic - Plan * NG tube removed, resume diet slowly, defer to GI and surgery teams * blood cultures so far negative, line cultures so far negative as well * BP stable * pain controlled * passing gas * will repeat KUB if symptoms worsen * continue current plan of care, appreacite subspecialists input * case and plan d/w patient at length, he understands and agrees with this plan
--- NOTE | 2017-12-15 13:32 | PRG ---
DATE OF SERVICE: 12/15/2017 HISTORY: Mr. Sterling is feeling much better. PHYSICAL EXAMINATION: VITAL SIGNS: Blood pressure 125/58, pulse 81, regular. LUNGS: Clear. CARDIAC: Normal S1 and S2. ABDOMEN: Soft, nontender. EXTREMITIES: There is no edema. ASSESSMENT: 1. Ileus, improved. 2. Post bypass surgery. 3. Hypokalemia, present on the lab yesterday. 4. Atrial fibrillation/flutter, no recurrence. PLAN: 1. Add low dose beta blockers. 2. Continue aspirin. 3. Continue angiotensin receptor noah. 4. Check potassium in the morning.
--- NOTE | 2017-12-15 15:18 | CON ---
DATE OF CONSULTATION: 12/14/2017 REASON FOR CONSULTATION: Recent bypass graft surgery with concerns regarding the central line and ileus development. HISTORY OF PRESENT ILLNESS: A 61-year-old with a history of hyperlipidemia, nephrolithiasis, coronary artery disease, who recently had a stent placement as well as coronary artery bypass graft on 12/07 and had developed changes in the right subclavian catheter site, which were concerning for exit site infection. Catheter has been removed and patient has also developed ileus, vomiting requiring placement of NG tube and management for that. The patient complains of difficulty breathing from the increased abdominal girth and distention and some abdominal tenderness. He has had a very small amount of gas passage through the anal area and has had very small amount of stool output, still with an NG tube in place with some output. No headaches. Mild shortness of breath. No cough, no back pain, no pain at the previous IV site in the subclavian region. Voiding without difficulty. No joint symptoms. PAST MEDICAL HISTORY: Coronary artery disease with recent bypass graft surgery , nephrolithiasis, hyperlipidemia. Patient had a previous laparoscopy a few months to years ago, previous cholecystectomy, hydrocele repair, inguinal hernia repair, lymph node biopsy, coronary artery bypass graft. FAMILY HISTORY: Coronary artery disease. SOCIAL HISTORY: Never a smoker. CURRENT MEDICATIONS: Tylenol, Maalox, DuoNeb, Ecotrin, Dulcolax, Lovenox, Claritin, Cozaar, Reglan, Nitrostat, Zofran, Protonix, Mylicon. ALLERGY HISTORY: Noncontributory. PHYSICAL EXAMINATION: VITAL SIGNS: T-max 99, currently 98.5, blood pressure 140/60, pulse 79, respirations 20, O2 sat 91%. SKIN EXAM: Shows the sternotomy site, which appears normal; and the left upper extremity arterial donor site, which appears not inflamed; and the saphenectomy donor sites, which are not inflamed either. Patient has a right subclavian central line area with some excoriation and a little bit of erythema and a central area of dried blood. No swelling or drainage. HEENT: Ocular movements conjugate. Oral cavity moist. Still quite a few teeth in place. NECK: Supple, no jugular vein distention. LUNGS: Symmetric with clear breath sounds. ABDOMEN: Distended. Decreased bowel sounds. No bladder distention. Mild tenderness. No organomegaly. Question of ascites. EXTREMITIES: No joint inflammatory activity. Pulses 1+ in dorsalis pedis. Moves all extremities equally. NEUROLOGIC: Cognitive function appears to be intact. LABORATORY DATA: White cell count 8.6, hemoglobin 11, platelets 251, 74% neutrophils. Sodium 138, creatinine 0.66. Normal liver profile. Albumin 3.3 and INR 1.3, pH 7.3, pCO2 of 42, pO2 of 78. Microbiology with negative blood cultures thus far and catheter tip culture no growth at 24 hours. C. difficile antigen and toxin negative. Patient had an abdomen and pelvis CT done, which shows no acute intra-abdominal pelvic abnormality, left pleural effusion. ASSESSMENT: Coronary artery disease with recent bypass graft surgery and concern regarding the right subclavian site. The patient also with ileus, which could be medication induced. DISCUSSION: No evidence of mechanical obstruction of the gastrointestinal tract. The right subclavian site findings do not indicate persistence of significant inflammatory changes. Blood cultures are negative; therefore, I do not recommend any antimicrobial therapy at this point in time. MTDD
[2017-12-15] MEDS ORDERED: Potassium Chloride 20 MEQ TAB PO SCH (16:45)
[2017-12-15] MEDS: Guaifenesin DM 100-10/5 ML UDCUP PO PRN ×2 (16:57→21:02)
[2017-12-15] MEDS: Benzonatate 100 MG CAP PO PRN (18:37)
[2017-12-16] MEDS: Metoclopramide HCl 10 MG/2 ML VIAL IVP SCH ×3 (00:10→11:00)
[2017-12-16] MEDS: Guaifenesin DM 100-10/5 ML UDCUP PO PRN ×2 (02:53→12:35)
[2017-12-16 04:54] LABS: Anion Gap 10 mmol/L (10-20); BUN (Urea Nitrogen) 11 mg/dL (8.4-25.7); Calc. Creatinine Clearance 195 mL/min (70-130); Calcium 8.7 mg/dL (7.8-10.44); Carbon Dioxide 29 mmol/L (23-31); Chloride 104 mmol/L (98-107); Estimated GFR-MDRD Greater than 90; Glucose 134 mg/dL (80-115); Magnesium 2.2 mg/dL (1.6-2.6); Sodium 140 mmol/L (136-145)
[2017-12-16 04:58] LABS: Potassium 2.7 mmol/L (3.5-5.1)
[2017-12-16] MEDS ORDERED: Potassium Chloride 20 MEQ TAB PO SCH (06:00)
[2017-12-16] MEDS: Pantoprazole 40 MG VIAL IVP SCH (08:25)
[2017-12-16] MEDS: Aspirin 81 mg Enteric Coated Tablet PO SCH (08:26)
[2017-12-16] MEDS: Losartan 25 MG TAB PO SCH (08:26)
[2017-12-16] MEDS: Potassium Chloride 20 MEQ TAB PO SCH ×2 (08:26→11:00)
[2017-12-16] MEDS: Enoxaparin Sodium 40 MG/0.4 ML SYRINGE SC SCH (08:26)
[2017-12-16 09:06] VITALS: BMI 36.6
--- NOTE | 2017-12-16 09:18 | PRG ---
DATE OF SERVICE: 12/16/2017 SUBJECTIVE: Mr. Sterling is up in the johnson, walking, feeling better. PHYSICAL EXAMINATION: VITAL SIGNS: Blood pressure 140/70, pulse 76, regular. LUNGS: Clear. CARDIAC: Normal S1, normal S2. ABDOMEN: Soft, nontender. EXTREMITIES: Trivial edema. LABORATORY DATA: Potassium is down to 2.7. He is in sinus rhythm. ASSESSMENT: 1. Postoperative status. 2. Ileus, resolved. 3. Hypokalemia, being corrected. 4. Atrial fibrillation, no recurrence. He received intravenous amiodarone, but he is not having rec urrent fibrillation now. PLAN: 1. Metoprolol long-acting at 25 mg a day. 2. Losartan 25 mg a day. 3. Aspirin. 4. Getting potassium repleted. 5. Statin. 6. Home soon. Potassium is currently being repleted.
--- NOTE | 2017-12-16 09:51 | PRG ---
DATE OF SERVICE: 12/15/2017 SUBJECTIVE: Mr. Sterling had a CAT scan last night that showed really very minimal dilation of the colo n. He was having bowel movements. His NG tube is out. He is tolerating a diet. OBJECTIVE: VITAL SIGNS: Temperature is 98, pulse 81, blood pressure 100/60, O2 sat 94% on room air. Gastric dr crowell yesterday at 7 a.m. was recorded at 600 mL, none since then. He is up and walking around the room. LUNGS: Clear. ABDOMEN: Protuberant, is mildly tympanitic. There is no rebound. There is no guarding. LABORATORY DATA: Today, none. IMAGING: CAT scan films reviewed from yesterday evening, small left pleural effusion and bilateral a telectasis. Small bowel was normal. Colon had fluid with mild enlargement along the right colon, bu t no thickening of the wall seen. There is still some air in the colon, but this seems to be markedl y improved from previous imaging. ASSESSMENT AND PLAN: 1. Ileus, resolving. Continue Reglan for 24 more hours, then discontinue. 2. Ambulate and walk. 3. If the patient does not have a bowel movement daily, I will give him a Dulcolax suppository. 4. Replace electrolyte deficiencies as they arise. 5. Avoid narcotics.
--- NOTE | 2017-12-16 11:38 | PDOC.EVN ---
Event Note - Event Note Event Note: DC SUMMARY #[id number]
[2017-12-16 11:51] VITALS: BP 104/66; TEMP 98.6
[2017-12-16] MEDS: Benzonatate 100 MG CAP PO PRN (12:35)
--- NOTE | 2017-12-16 13:06 | DIS ---
DATE OF ADMISSION: 12/06/2017 DATE OF DISCHARGE: 12/16/2017 ADMITTING DIAGNOSES: Unstable angina, hypertension, coronary artery disease, hyperlipidemia. DISCHARGE DIAGNOSES: Coronary artery disease status post coronary artery bypass graft, post-surgery ileus, hypertension, hyperlipidemia, obesity. HOSPITAL COURSE: This is a 61-year-old male admitted to the Internal Medicine team due to unstable a ngina and was found to have severe significant coronary artery disease requiring surgical interventio n. The patient was followed by cardiology and cardiothoracic surgery. The patient had coronary teresa ry bypass grafting performed. The patient developed a postop ileus. The patient had an NG tube plac ed. GI was consulted. The patient was followed very closely for approximately 3-4 days with NG tube and intermittent suctioning. The patient was noted to have improvement in bowel gas patterns as wel l as was passing gas. NG tube was removed. The patient was observed for 24 hours post-NG tube remov al. Patient at point in time of discharge denied any nausea, vomiting, diarrhea, constipation, chest pains or shortness of breath. The patient was tolerating diet, passing gas, was not having any stoo ls that were dark or bloody in nature and patient was able to perform walking with no problems. at bedside. DISPOSITION: Home with home health care for physical therapy, outpatient cardiac rehabilitation. Fo llow up with PCP, Cardiology, Cardiothoracic Surgery within 5-10 days. MEDICATIONS: See MAR. DIET: Low fat, low calorie, high fiber diet. ACTIVITY: As tolerated with assistance if needed. CONDITION: Stable. PROGNOSIS: Good. Case and plan discussed with the patient and at length. Patient was cleared by Cardiology and G I teams prior to discharge as well as cleared from Internal Medicine perspective. and the patie nt understand and agree with this plan.
--- NOTE | 2017-12-16 15:43 | PRG ---
DATE OF SERVICE: 12/16/2017 SUBJECTIVE: Mr. Sterling is eating well, having bowel movements and passing gas. He is in no distress. OBJECTIVE: VITAL SIGNS: Temperature is 98, pulse 76, blood pressure 104/66. ABDOMEN: Protuberant and tympanitic. There are positive bowel sounds. LABORATORY STUDIES: Potassium is 2.7 today; it was 3.2 yesterday. I gave him 40 mg, potassium. The nurse reports he has gotten 80 mEq today. Electrolytes, otherwise normal. ASSESSMENT: 1. Ileus, resolving. 2. Hypokalemia, RECOMMENDATIONS: Advance diet as tolerated. As far as I am concerned from a GI standpoint, the nathaniel ent can be discharged. I have recommended he stay on a laxative regimen and he does not need Reglan to go home with, and he needs to ambulate and move around. With regard to his hypokalemia, this may hold up his discharge. I will leave that to Internal Medicine.
--- NOTE | 2017-12-19 13:51 | OP ---
DATE OF PROCEDURE: 12/08/2017 PREOPERATIVE DIAGNOSIS: Coronary artery disease. POSTOPERATIVE DIAGNOSIS: Coronary artery disease. PROCEDURE: Coronary bypass grafting x3, left internal mammary artery to LAD, radial artery to the ob tuse marginal and saphenous vein graft to the right coronary artery. SURGEON: Dr. David Boyle PROCEDURE IN DETAIL: After prepping and draping, a left radial artery was harvested, ensuring good c ollateral flow. Following this, a segment of saphenous vein was then harvested and attention was tur hiren to the chest where a median sternotomy was performed. Left internal mammary artery was then harv ested. Aorta and right atrium were cannulated and after adequate ACT levels had been obtained, cardi opulmonary bypass was instituted. Vessels were inspected for grafting, the aorta was cross-clamped a nd a liter of cardioplegia was given through the aortic root. Following this, the anastomosis to the LAD, OM and right coronary were completed. Crossclamp was removed, partial occluding clamp placed, and the venous anastomoses performed on the aortic root and to the aggarwal of this, the radial artery wa s placed. Following this, the patient was weaned from cardiopulmonary bypass, cannulas removed, and protamine given systemically. Mediastinal and left pleural drains were then placed following which t he sternum was reapproximated with #7 interrupted wire as well as hip ties using vancomycin paste on the sternal edges, platelet rich blood, and platelet-poor plasma. Subcutaneous tissue and skin were closed in layers using sutures and this patient is to be taken to the ICU in guarded condition.
--- NOTE | 2017-12-25 01:26 | EKG ---
Test Reason : Blood Pressure : / mmHG Vent. Rate : 070 BPM Atrial Rate : 070 BPM P-R Int : 204 ms QRS Dur : 102 ms QT Int : 392 ms P-R-T Axes : 033 016 018 degrees QTc Int : 423 ms Normal sinus rhythm Nonspecific T wave abnormality Abnormal ECG Confirmed by JADE MITCHELL, DIONNA ([id number]), editor newspaper TOYA MALDONADO ([id number]) on 12/25/2017 1:25:38 AM Referred By: Confirmed By:DIONNA HANSEN MD
--- NOTE | 2017-12-25 01:26 | EKG ---
Test Reason : Blood Pressure : / mmHG Vent. Rate : 054 BPM Atrial Rate : 054 BPM P-R Int : 208 ms QRS Dur : 106 ms QT Int : 440 ms P-R-T Axes : 032 022 051 degrees QTc Int : 417 ms Sinus bradycardia Otherwise normal ECG Confirmed by JADE MITCHELL, DIONNA ([id number]), acquisition editor TOYA MALDONADO ([id number]) on 12/25/2017 1:25:42 AM Referred By: Confirmed By:DIONNA HANSEN MD
== END 2017-12-16 14:10 | disposition home health service (06) | DRG 236 ==
LOC: ERS 07:49 → 2NO 14:44 → CCU 12-07 11:24 → 2SE 12-10 17:40
PROVIDERS: ADMIT Internal Medicine; ATTEND Internal Medicine
PROC: 02100Z9 Bypass Coronary Artery, One Artery from Left Internal Mammary, Open Approach (ICD-10-PCS; principal; 2017-12-08)
PROC: 02100AW Bypass Coronary Artery, One Artery from Aorta with Autologous Arterial Tissue, Open Approach (ICD-10-PCS; 2017-12-08)
PROC: 021009W Bypass Coronary Artery, One Artery from Aorta with Autologous Venous Tissue, Open Approach (ICD-10-PCS; 2017-12-08)
PROC: 06BY0ZZ Excision of Lower Vein, Open Approach (ICD-10-PCS; 2017-12-08)
PROC: 03BC0ZZ Excision of Left Radial Artery, Open Approach (ICD-10-PCS; 2017-12-08)
PROC: 5A1221Z Performance of Cardiac Output, Continuous (ICD-10-PCS; 2017-12-08)
DX: E78.00 Pure hypercholesterolemia, unspecified; Z68.36 Body mass index [BMI] 36.0-36.9, adult; E87.6 Hypokalemia; I16.0 Hypertensive urgency; Z79.82 Long term (current) use of aspirin; Z95.5 Presence of coronary angioplasty implant and graft; K91.89 Other postprocedural complications and disorders of digestive system; E66.9 Obesity, unspecified; K56.7 Ileus, unspecified; I25.110 Atherosclerotic heart disease of native coronary artery with unstable angina pectoris; Z87.442 Personal history of urinary calculi; K59.00 Constipation, unspecified; I10 Essential (primary) hypertension; I48.0 Paroxysmal atrial fibrillation
CPT/HCPCS: 36415; 36416; 36430; 71045; 74018; 74019; 74177; 80048; 80053; 82553; 82805; 83735; 84100; 84443; 84484; 85007; 85025; 85027; 85610; 85730; 86850; 86900; 86901; 87040; 87071; 87324; 87449; 93005; 93010; 93798; 94002; 94150; 94640; 96372; 96374; A4216; C9113; J0282; J1642; J1644; J1650; J1815; J1885; J2001; J2250; J2270; J2370; J2405; J2440; J2704; J2720; J2765; J3010; J3370; J3475; J3480; J7050; J7070; J7620; P9045; S0017

== ENCOUNTER 2018-02-01 07:35 | Outpatient (CLI) | payer BC ==
[2018-02-01] MEDS ORDERED: Iopamidol 370 76% 100 ML VIAL ONE (13:06)
== END 2018-02-01 07:36 | disposition home or self-care (01) ==
LOC: BICCT 07:35
PROVIDERS: ATTEND Internal Medicine Medical Oncology
DX: R59.0 Localized enlarged lymph nodes (principal); I51.7 Cardiomegaly; M87.9 Osteonecrosis, unspecified; Z98.890 Other specified postprocedural states
CPT/HCPCS: 71046; 74177

== ENCOUNTER 2018-03-15 08:09 | Outpatient (CLI) | payer BC | END 2018-03-15 08:10 | disposition home or self-care (01) | LOC: BICULT 08:09 | PROVIDERS: ATTEND Specialist | DX: E04.1 Nontoxic single thyroid nodule (principal); E04.2 Nontoxic multinodular goiter | CPT/HCPCS: 76536 ==

== ENCOUNTER 2018-03-30 12:27 | Day surgery (SDC) | payer BC ==
[2018-03-29 14:33] VITALS: BMI 31.6
[2018-03-30] MEDS ORDERED: Lidocaine 1% PF 5 ML VIAL ONE (13:09)
[2018-03-30 14:21] VITALS: BP 118/68; TEMP 97.5
--- NOTE | 2018-03-30 15:48 | ULT ---
ULTRASOUND GUIDED FINE NEEDLE ASPIRATION OF A RIGHT THYROID LOBE CYST THAT HAS INCREASED IN SIZE: HISTORY: Ultrasound-guided fine needle aspiration of a right thyroid lobe cyst that has increased in size. FINDINGS: Technically successful ultrasound-guided right thyroid lobe cyst aspiration. A total of 2.5 cc of sl ightly orange-tinged fluid was aspirated. The residual cyst does remain. Initially, the cyst measur ed 12.2 cm. After aspiration, the cyst measured 0.75 cm. There are no immediate or postprocedure complications. TECHNIQUE: Consent obtained to perform an ultrasound-guided aspiration of right thyroid lobe cyst. The right ne ck was prepped and draped in sterile fashion; 1% Lidocaine, buffered with sodium bicarbonate, was use d for local anesthesia. Under ultrasound guidance, a 22-gauge needle was advanced into the right thy roid lobe cyst. The cyst was aspirated. A second aspiration was performed. A total of 2.5 mL of sl ightly orange-colored fluid was aspirated. The patient tolerated the procedure well. No immediate o r postprocedure complications. IMPRESSION: Successful fine needle aspiration of a cyst in the right thyroid lobe which is reported to have incre ased in size. Fluid will be sent to pathology for evaluation POS: OFF
== END 2018-03-30 14:00 | disposition home or self-care (01) ==
LOC: ULT 12:27
PROVIDERS: ATTEND Specialist
PROC: 0G9H3ZX Drainage of Right Thyroid Gland Lobe, Percutaneous Approach, Diagnostic (ICD-10-PCS; principal; 2018-03-30)
DX: E04.1 Nontoxic single thyroid nodule (principal); I10 Essential (primary) hypertension; E78.00 Pure hypercholesterolemia, unspecified; J32.9 Chronic sinusitis, unspecified; Z79.82 Long term (current) use of aspirin; Z79.899 Other long term (current) drug therapy; Z91.018 Allergy to other foods
CPT/HCPCS: 10022; 76942; 88173; J2001

== ENCOUNTER 2019-05-22 14:16 | Outpatient (CLI) | payer BC ==
--- NOTE | 2019-05-22 14:51 | ULT ---
THYROID ULTRASOUND INDICATION: Follow-up thyroid cyst TECHNIQUE: Grayscale and color Doppler images were obtained of the thyroid gland. COMPARISON: February 24, 2017 FINDINGS: Right thyroid lobe: The right thyroid lobe measures 4.5 x 1.5 x 1.5 cm. There is stable 4 mm cyst wit hin superior pole right lower lobe. There is a 4 mm cyst within the mid right thyroid lobe. The previously seen large cyst within the mid to lower aspect of the right there are lobe is no longer id entified. Thyroid isthmus: The thyroid isthmus measures 0.4 cm. cm. There is a 6 mm cyst within the thyroid ist hmus that was not definitely seen on the comparison exam. Left thyroid lobe: The left thyroid lobe measures 4.2 x 1.5 x 1.5 cm. The lobulated cyst involving in ferior pole left thyroid lobe is decreased in size now measuring 7 mm. There is a 4 mm cyst seen within the mid left thyroid lobe. IMPRESSION: 1. TIRADS 1 lesions of the right and left thyroid lobe.
== END 2019-05-22 14:17 | disposition home or self-care (01) ==
LOC: BICULT 14:16
PROVIDERS: ATTEND Specialist
DX: E04.1 Nontoxic single thyroid nodule (principal)
CPT/HCPCS: 76536

== ENCOUNTER 2023-03-29 09:36 | Outpatient (CLI) | payer MEDICARE, BC | END 2023-03-29 09:37 | disposition home or self-care (01) | LOC: BICMRI 09:36 | PROVIDERS: ATTEND Orthopaedic Surgery | DX: M16.11 Unilateral primary osteoarthritis, right hip (principal); M87.9 Osteonecrosis, unspecified; R60.9 Edema, unspecified; S73.191A Other sprain of right hip, initial encounter ==

== ENCOUNTER 2023-06-09 10:50 | Outpatient (CLI) | payer MEDICARE, BC | END 2023-06-09 10:51 | disposition home or self-care (01) | LOC: RAD 10:50 | PROVIDERS: ATTEND Internal Medicine Cardiovascular Disease | DX: R06.00 Dyspnea, unspecified (principal) | CPT/HCPCS: 36415; 71046; 82728; 83880; 85025; 85379 ==

== ENCOUNTER 2023-07-05 17:08 | Observation (INO) | payer MEDICARE, BC ==
[~2023-07-05 17:08] MED LIST changes: -Fentanyl 100 MCG/2 ML VIAL ONE; -Iopamidol 370 76% 100 ML VIAL ONE; +Iopamidol-370 76% 500 ML MDV (1 ML CHARGE) ONE; -Lidocaine 1% (PF) 30 ML VIAL ONE; -Midazolam HCl 2 mg/2 ml Vial ONE
[2023-07-05 17:57] LABS: #Monocytes 0.8 thou/uL (0.11-0.59); #Neutrophils 10.8 thou/uL (1.40-6.50); %Basophils 0.2 % (0.0-1.0); %Eosinophils 0.1 % (0.0-10.0); %Lymphocytes 7.9 % (21.0-51.0); %Monocytes 6.4 % (0.0-10.0); %Neutrophils 83.8 % (42.0-75.0); Hematocrit 44.5 % (42.0-52.0); Hemoglobin 16.5 g/dL (14.0-18.0); Mean Corpuscular HGB CONC 37.1 g/dL (32.0-36.0); Mean Platelet Volume 9.4 fL (7.4-10.4); Platelet Count 201 10x3/uL (130-400); RBC Distribution Width 11.3 % (11.5-14.5); White Blood Cell (WBC) Count 12.9 10x3/uL (4.8-10.8)
[2023-07-05 18:07] LABS: Actual Bicarbonate (HCO3v) 17.3 mEq/L (22-28); Base Excess -2.7 mEq/L (-2.0 to +3.0); Calcium, Ionized (venous) 1.11 mmol/L (1.16-1.32); Chloride (VBG) 97 mmol/L (98-106); Hematocrit-VBG 49 % (42.0-52.0); Hemoglobin (Hb) 16.7 g/dL (12.6-17.4); Potassium (VBG) 4.32 mmol/L (3.70-5.30); Sodium 131 mmol/L (133-146); pH (venous) 7.524 (7.32-7.43)
[2023-07-05 18:21] LABS: ALT (SGPT) 72 U/L (8-55); AST (SGOT) 21 U/L (5-34); Albumin 4.4 g/dL (3.4-4.8); Alkaline Phosphatase 74 U/L (40-110); Anion Gap 18 mmol/L (10-20); BUN (Urea Nitrogen) 25 mg/dL (8.4-25.7); Bilirubin, Total 0.5 mg/dL (0.2-1.2); Calc. Creatinine Clearance 0 mL/min (70-130); Calcium 9.3 mg/dL (7.8-10.44); Carbon Dioxide 18 mmol/L (23-31); Chloride 98 mmol/L (98-107); Estimated GFR 86; Globulin 2.2 g/dL (2.4-3.5); Potassium 4.2 mmol/L (3.5-5.1); Protein, Total 6.6 g/dL (5.8-8.1); Sodium 130 mmol/L (136-145)
[2023-07-05 18:24] LABS: Troponin I Less than 0.010 ng/mL (< 0.028)
[2023-07-05 18:26] LABS: Glucose 434 mg/dL (80-115)
[2023-07-05] MEDS ORDERED: cefTRIAXone (ROCEPHIN) 2 GM VIAL ONE (19:36)
[2023-07-05] MEDS ORDERED: Azithromycin 500 MG VIAL ONE (20:27)
[2023-07-05 21:38] VITALS: BMI 31.1
[2023-07-05] MEDS ORDERED: HumaLOG 300 UNITS/3 ML VIAL SC PRN ×3 (21:46→22:37)
[2023-07-05] MEDS ORDERED: Glucagon 1 MG/ML KIT IM PRN (21:46)
[2023-07-05] MEDS ORDERED: Dextrose 50% Abboject 50 ML SYRINGE SLOW IVP PRN (21:46)
[2023-07-05] MEDS ORDERED: Dextrose 5% in Water 1,000 ML IV PRN (21:46)
[2023-07-05] MEDS ORDERED: Ondansetron PF 4 MG/2 ML Vial IVP PRN (21:48)
[2023-07-05] MEDS ORDERED: Acetaminophen 325 MG TAB PO PRN (21:48)
[2023-07-05] MEDS ORDERED: hydrOXYzine 25 MG TAB PO PRN (21:48)
[2023-07-05] MEDS ORDERED: Ondansetron ODT 4 MG TAB PO PRN (21:48)
[2023-07-05] MEDS ORDERED: Lactated Ringer's 1,000 ML IV SCH (22:30)
[2023-07-05 22:52] LABS: Troponin I Less than 0.010 ng/mL (< 0.028)
[2023-07-06 00:30] LABS: Lactic Acid 3.3 mmol/L (0.5-2.2)
[2023-07-06 05:14] LABS: #Monocytes 0.8 thou/uL (0.11-0.59); #Neutrophils 7.4 thou/uL (1.40-6.50); %Basophils 0.3 % (0.0-1.0); %Eosinophils 0.4 % (0.0-10.0); %Lymphocytes 10.9 % (21.0-51.0); %Neutrophils 78.3 % (42.0-75.0); Hematocrit 38.8 % (42.0-52.0); Hemoglobin 13.9 g/dL (14.0-18.0); Mean Corpuscular HGB CONC 35.8 g/dL (32.0-36.0); Mean Corpuscular Hemoglobin 33.1 pg (27.0-31.0); Mean Platelet Volume 9.3 fL (7.4-10.4); Platelet Count 147 10x3/uL (130-400); RBC Distribution Width 11.5 % (11.5-14.5); White Blood Cell (WBC) Count 9.5 10x3/uL (4.8-10.8)
[2023-07-06 05:18] LABS: Mean Corpuscular Volume 92.4 fl (78.0-98.0)
[2023-07-06] MEDS: HumaLOG 300 UNITS/3 ML VIAL SC PRN ×3 (06:02→17:52)
[2023-07-06 06:14] LABS: Lactic Acid 1.7 mmol/L (0.5-2.2)
[2023-07-06 06:50] LABS: ALT (SGPT) 52 U/L (8-55); AST (SGOT) 13 U/L (5-34); Albumin 3.4 g/dL (3.4-4.8); Alkaline Phosphatase 68 U/L (40-110); Anion Gap 12 mmol/L (10-20); BUN (Urea Nitrogen) 22 mg/dL (8.4-25.7); Bilirubin, Total 0.3 mg/dL (0.2-1.2); Calc. Creatinine Clearance 137 mL/min (70-130); Calcium 8.1 mg/dL (7.8-10.44); Carbon Dioxide 23 mmol/L (23-31); Chloride 104 mmol/L (98-107); Estimated GFR 98; Globulin 1.6 g/dL (2.4-3.5); Glucose 292 mg/dL (80-115); Potassium 3.9 mmol/L (3.5-5.1); Sodium 135 mmol/L (136-145)
[2023-07-06] MEDS ORDERED: metFORMIN 500 MG TAB PO SCH (09:00)
[2023-07-06] MEDS ORDERED: Cholecalciferol 1,000 UNITS (25 MCG) TAB PO SCH (09:00)
[2023-07-06] MEDS ORDERED: Furosemide 20 MG TAB PO SCH (09:00)
[2023-07-06] MEDS ORDERED: Famotidine 20 MG TAB PO SCH (09:00)
[2023-07-06] MEDS ORDERED: Rosuvastatin 20 MG TAB PO SCH (09:00)
[2023-07-06] MEDS ORDERED: Spironolactone 25 MG TAB PO SCH (09:00)
[2023-07-06] MEDS ORDERED: Ezetimibe 10 MG TAB PO SCH (09:00)
[2023-07-06] MEDS ORDERED: Aspirin Chewable 81 MG TAB PO SCH (09:00)
[2023-07-06] MEDS ORDERED: Magnesium Oxide 400 MG TAB PO SCH (09:00)
[2023-07-06] MEDS ORDERED: Empagliflozin 25 MG TAB PO SCH (09:00)
[2023-07-06 16:29] VITALS: BP 101/62; TEMP 97.8
[2023-07-09] MEDS ORDERED: FLU VACC QS2023(65UP)/MF59C/PF 60 MCG/0.5 ML SYRINGE IM ONE (09:00)
== END 2023-07-06 19:09 | disposition home or self-care (01) ==
LOC: ERS 17:08 → 2SW 20:13
PROVIDERS: ADMIT Student in an Organized Health Care Education/Training Program; ATTEND Student in an Organized Health Care Education/Training Program
DX: U07.1 COVID-19 (principal); R06.00 Dyspnea, unspecified; J98.11 Atelectasis; E87.3 Alkalosis; R06.4 Hyperventilation; F41.9 Anxiety disorder, unspecified; R74.01 Elevation of levels of liver transaminase levels; I25.10 Atherosclerotic heart disease of native coronary artery without angina pectoris; E11.9 Type 2 diabetes mellitus without complications; I10 Essential (primary) hypertension; E78.5 Hyperlipidemia, unspecified; G47.33 Obstructive sleep apnea (adult) (pediatric); Z91.018 Allergy to other foods; Z79.82 Long term (current) use of aspirin; Z95.1 Presence of aortocoronary bypass graft; Z79.84 Long term (current) use of oral hypoglycemic drugs; Z90.89 Acquired absence of other organs; Z79.899 Other long term (current) drug therapy
CPT/HCPCS: 71045; 71275; 80053 ×2; 82805; 82962 ×2; 83605 ×2; 83880; 84145; 84484 ×2; 85025 ×2; 87040; 93005; 96365; 96375; 97535; 99285; J0456; 36415; 36416; 96372; G0378; J0696; J1650; J1815; J7120; Q9967

== ENCOUNTER 2023-07-14 08:21 | Outpatient (CLI) | payer MEDICARE, BC ==
[2023-07-14 10:08] LABS: #Eosinphils 0.1 10x3/uL (0.0-0.5); #Monocytes 0.6 10x3/uL (0.0-1.1); #Neutrophils 4.5 10x3/uL (1.5-8.4); %Basophils 0.3 % (0.0-2.0); %Lymphocytes 14.7 % (18.0-47.0); %Monocytes 10.1 % (0.0-10.0); %Neutrophils 73.1 % (40.0-75.0); Hematocrit 41.8 % (38.8-50.0); Hemoglobin 14.9 g/dL (13.5-17.5); Mean Corpuscular HGB CONC 35.6 g/dL (32.0-36.0); Mean Corpuscular Hemoglobin 32.5 pg (27.0-33.0); Mean Corpuscular Volume 91.1 fl (81.2-95.1); Mean Platelet Volume 9.7 fl (7.4-10.4); Platelet Count 146 10x3/uL (150-450); RBC Distribution Width 11.9 % (11.5-14.5); Red Blood Cell (RBC) Count 4.59 10x6/uL (4.32-5.72); White Blood Cell (WBC) Count 6.1 10x3/uL (3.5-10.5)
[2023-07-14 10:28] LABS: Anion Gap 16 mmol/L (10-20); BUN (Urea Nitrogen) 15 mg/dL (8.4-25.7); Calc. Creatinine Clearance 0 mL/min (70-130); Calcium 8.9 mg/dL (7.8-10.44); Carbon Dioxide 21 mmol/L (23-31); Chloride 105 mmol/L (98-107); Estimated GFR 94; Potassium 4.5 mmol/L (3.5-5.1); Sodium 137 mmol/L (136-145)
[2023-07-14 10:30] LABS: INR-International Normal Ratio 0.9; Prothrombin Time 9.8 sec (9.5-12.1)
[2023-07-14 10:32] LABS: Glucose 408 mg/dL (80-115)
== END 2023-07-14 08:22 | disposition home or self-care (01) ==
LOC: LABBT 08:21
PROVIDERS: ATTEND Orthopaedic Surgery
DX: Z01.812 Encounter for preprocedural laboratory examination (principal); M16.11 Unilateral primary osteoarthritis, right hip; M87.051 Idiopathic aseptic necrosis of right femur
CPT/HCPCS: 80048; 85025; 85610; 87081

== ENCOUNTER 2023-07-19 06:02 | Observation (INO) | payer MEDICARE, BC ==
[2023-07-14 08:58] VITALS: BMI 30.5
[2023-07-19] MEDS ORDERED: Sodium Chloride 0.9% 100 ML ONE ×2 (06:28→06:58)
[2023-07-19] MEDS ORDERED: Tranexamic Acid 1,000 MG/10 ML VIAL ONE (06:28)
[2023-07-19] MEDS ORDERED: Vancomycin (BATCH) 1.5 GM/300 ML BAG ONE (06:28)
[2023-07-19] MEDS ORDERED: Midazolam HCl 2 mg/2 ml Vial ONE (06:47)
[2023-07-19] MEDS ORDERED: fentaNYL 50 mcg/mL 1 mL Vial ONE ×4 (06:47→11:07)
[2023-07-19] MEDS ORDERED: Bupivacaine 0.25% HCL 30 ML VIAL ONE (06:48)
[2023-07-19] MEDS ORDERED: EPINEPHrine 1 MG/ML AMP ONE (06:48)
[2023-07-19] MEDS ORDERED: CEFAZOLIN 2 GM VIAL ONE (06:58)
[2023-07-19] MEDS ORDERED: Ondansetron PF 4 MG/2 ML Vial ONE (07:05)
[2023-07-19] MEDS ORDERED: ePHEDrine Sulfate 50 MG/10 ML VIAL ONE (07:05)
[2023-07-19] MEDS ORDERED: Rocuronium Bromide 10 MG/ML (10ML VIAL) ONE (07:05)
[2023-07-19] MEDS ORDERED: Ropivacaine 0.5% HCl/PF (150 MG/30 ML VIAL) ONE ×2 (07:05→07:33)
[2023-07-19] MEDS ORDERED: Lidocaine 1% PF 5 ML VIAL ONE (07:05)
[2023-07-19] MEDS ORDERED: PROPOFOL 200 MG/20 ML VIAL ONE (07:05)
[2023-07-19] MEDS ORDERED: diphenhydrAMINE 25 MG CAP PO PRN (07:15)
[2023-07-19] MEDS ORDERED: Ondansetron PF 4 MG/2 ML Vial IVP PRN (07:15)
[2023-07-19] MEDS ORDERED: Zolpidem Tartrate 5 MG TAB PO PRN (07:15)
[2023-07-19] MEDS ORDERED: Promethazine HCl 25 MG/ML VIAL IM PRN ×2 (07:15→08:57)
[2023-07-19] MEDS ORDERED: fentaNYL 50 mcg/mL 1 mL Vial SLOW IVP PRN ×2 (07:15)
[2023-07-19] MEDS ORDERED: Acetaminophen 325 MG TAB PO PRN (07:15)
[2023-07-19] MEDS ORDERED: SUGAMMADEX SODIUM 200 MG/2 ML VIAL ONE (08:41)
[2023-07-19] MEDS ORDERED: Ondansetron HCl/PF 4 MG/2 ML Vial IVP PRN (08:57)
[2023-07-19] MEDS ORDERED: Aspirin Chewable 81 MG TAB PO SCH (09:00)
[2023-07-19] MEDS ORDERED: ERGOCALCIFEROL 50 MCG PO SCH (09:00)
[2023-07-19] MEDS ORDERED: HYDROmorphone 0.5 MG/0.5 ML SYRINGE ONE ×2 (09:38→10:14)
[2023-07-19] MEDS: CEFAZOLIN 2 GM in Sodium Chloride 0.9% 100 ML IVPB SCH ×2 (14:22→22:31)
[2023-07-19] MEDS: HYDROcodone/Acetaminophen 10/325 mg Tablet PO PRN ×2 (14:23→22:30)
[2023-07-19] MEDS: Sodium Chloride 0.9% 1,000 ML IV SCH ×2 (14:37→22:31)
[2023-07-19] MEDS: Furosemide 20 MG TAB PO SCH (16:42)
[2023-07-19] MEDS: Aspirin 81 mg Enteric Coated Tablet PO SCH ×2 (16:42→22:30)
[2023-07-19] MEDS: Magnesium Oxide 400 MG TAB PO SCH (16:42)
[2023-07-19] MEDS: Famotidine 20 MG TAB PO SCH ×2 (16:42→22:30)
[2023-07-19] MEDS: Spironolactone 25 MG TAB PO SCH (16:42)
[2023-07-19] MEDS: Empagliflozin 25 MG TAB PO SCH (16:42)
[2023-07-19] MEDS: Ezetimibe 10 MG TAB PO SCH (16:42)
[2023-07-19] MEDS: Rosuvastatin 20 MG TAB PO SCH (16:43)
[2023-07-20] MEDS: Sodium Chloride 0.9% 1,000 ML IV SCH ×2 (02:51→09:23)
[2023-07-20 05:07] LABS: Hematocrit 36.6 % (42.0-52.0); Hemoglobin 12.7 g/dL (14.0-18.0); Mean Corpuscular HGB CONC 34.7 g/dL (32.0-36.0); Mean Corpuscular Hemoglobin 33.2 pg (27.0-31.0); Mean Corpuscular Volume 95.6 fl (78.0-98.0); Mean Platelet Volume 9.2 fL (7.4-10.4); Platelet Count 125 10x3/uL (130-400); RBC Distribution Width 12.6 % (11.5-14.5); Red Blood Cell (RBC) Count 3.83 mill/uL (4.70-6.10); White Blood Cell (WBC) Count 7.9 10x3/uL (4.8-10.8)
[2023-07-20] MEDS: HYDROcodone/Acetaminophen 10/325 mg Tablet PO PRN ×5 (05:49→20:54)
[2023-07-20] MEDS: Senokot S 8.6-50 MG TAB PO SCH ×2 (08:18→20:53)
[2023-07-20] MEDS: Rosuvastatin 20 MG TAB PO SCH (08:19)
[2023-07-20] MEDS: Furosemide 20 MG TAB PO SCH (08:19)
[2023-07-20] MEDS: Magnesium Oxide 400 MG TAB PO SCH (08:19)
[2023-07-20] MEDS: Empagliflozin 25 MG TAB PO SCH (08:19)
[2023-07-20] MEDS: Aspirin 81 mg Enteric Coated Tablet PO SCH ×2 (08:19→20:53)
[2023-07-20] MEDS: Spironolactone 25 MG TAB PO SCH (08:19)
[2023-07-20] MEDS: Ezetimibe 10 MG TAB PO SCH (08:19)
[2023-07-20] MEDS: Multivitamin W/ Minerals 1 TAB PO SCH (08:19)
[2023-07-20] MEDS: Famotidine 20 MG TAB PO SCH ×2 (08:20→20:53)
[2023-07-20] MEDS: Ferrous Gluconate 324 MG TAB PO SCH ×2 (08:24→17:01)
[2023-07-20] MEDS ORDERED: Morphine 4 MG/ML VIAL SLOW IVP PRN (15:01)
[2023-07-20] MEDS: Ketorolac Tromethamine 30 MG/ML VIAL IVP SCH (17:01)
[2023-07-21] MEDS: Ketorolac Tromethamine 30 MG/ML VIAL IVP SCH ×3 (00:22→11:00)
[2023-07-21] MEDS: Sodium Chloride 0.9% 1,000 ML IV SCH ×2 (00:23→08:15)
[2023-07-21] MEDS: Ferrous Gluconate 324 MG TAB PO SCH (08:14)
[2023-07-21] MEDS: Aspirin 81 mg Enteric Coated Tablet PO SCH (08:14)
[2023-07-21] MEDS: Rosuvastatin 20 MG TAB PO SCH (08:14)
[2023-07-21] MEDS: Senokot S 8.6-50 MG TAB PO SCH (08:14)
[2023-07-21] MEDS: Multivitamin W/ Minerals 1 TAB PO SCH (08:14)
[2023-07-21] MEDS: Spironolactone 25 MG TAB PO SCH (08:15)
[2023-07-21] MEDS: Ezetimibe 10 MG TAB PO SCH (08:15)
[2023-07-21] MEDS: Famotidine 20 MG TAB PO SCH (08:15)
[2023-07-21] MEDS: Empagliflozin 25 MG TAB PO SCH (08:15)
[2023-07-21] MEDS: Magnesium Oxide 400 MG TAB PO SCH (08:15)
[2023-07-21] MEDS: Furosemide 20 MG TAB PO SCH (08:15)
[2023-07-21] MEDS: HYDROcodone/Acetaminophen 10/325 mg Tablet PO PRN ×2 (10:34→14:16)
[2023-07-21 11:50] VITALS: BP 118/67; TEMP 98.7
== END 2023-07-21 15:22 | disposition home or self-care (01) ==
LOC: SDC 06:02 → SURG A 11:21 → SDC 11:22 → SURG A 11:24
PROVIDERS: ADMIT Orthopaedic Surgery; ATTEND Orthopaedic Surgery
PROC: 0SR90JZ Replacement of Right Hip Joint with Synthetic Substitute, Open Approach (ICD-10-PCS; principal; 2023-07-19)
DX: M16.11 Unilateral primary osteoarthritis, right hip (principal); M87.051 Idiopathic aseptic necrosis of right femur; J32.9 Chronic sinusitis, unspecified; I10 Essential (primary) hypertension; E78.5 Hyperlipidemia, unspecified; Z90.89 Acquired absence of other organs; Z98.890 Other specified postprocedural states; Z79.899 Other long term (current) drug therapy
CPT/HCPCS: 27130; 73502; 82962; 85027; 96365; 96375; 96376 ×2; 97110 ×3; 97116 ×3; 97530 ×2; 97535; C1776; G0378 ×3; J3010 ×2; J3370; 36415; 36416; J0171; J1170; J1885; J2250; J2405; J2704; J2795; J3490; J7050; S0020

== ENCOUNTER 2023-07-29 11:03 | Inpatient (IN) | payer MEDICARE, BC ==
[2023-07-29] MEDS ORDERED: Ondansetron PF 4 MG/2 ML Vial ONE (11:42)
[2023-07-29] MEDS ORDERED: Morphine 4 MG/ML VIAL ONE ×2 (11:42→15:05)
[2023-07-29 12:02] LABS: #Eosinphils 0.1 thou/uL (0.0-0.7); #Monocytes 0.6 thou/uL (0.11-0.59); #Neutrophils 2.8 thou/uL (1.40-6.50); %Basophils 0.2 % (0.0-1.0); %Eosinophils 1.8 % (0.0-10.0); %Lymphocytes 21.8 % (21.0-51.0); %Neutrophils 61.1 % (42.0-75.0); Hematocrit 39.3 % (42.0-52.0); Hemoglobin 13.8 g/dL (14.0-18.0); Mean Corpuscular HGB CONC 35.1 g/dL (32.0-36.0); Mean Corpuscular Hemoglobin 31.8 pg (27.0-31.0); Mean Corpuscular Volume 90.6 fl (78.0-98.0); Mean Platelet Volume 8.4 fL (7.4-10.4); Platelet Count 313 10x3/uL (130-400); RBC Distribution Width 12.4 % (11.5-14.5); Red Blood Cell (RBC) Count 4.34 mill/uL (4.70-6.10); White Blood Cell (WBC) Count 4.5 10x3/uL (4.8-10.8)
[2023-07-29 12:28] LABS: ALT (SGPT) 13 U/L (8-55); AST (SGOT) 15 U/L (5-34); Albumin 4.3 g/dL (3.4-4.8); Alkaline Phosphatase 71 U/L (40-110); Anion Gap 17 mmol/L (10-20); BUN (Urea Nitrogen) 11 mg/dL (8.4-25.7); Bilirubin, Total 0.7 mg/dL (0.2-1.2); Calc. Creatinine Clearance 0 mL/min (70-130); Calcium 10.1 mg/dL (7.8-10.44); Carbon Dioxide 22 mmol/L (23-31); Chloride 100 mmol/L (98-107); Estimated GFR 96; Globulin 2.8 g/dL (2.4-3.5); Glucose 174 mg/dL (80-115); Lipase 16 U/L (8-78); Potassium 3.2 mmol/L (3.5-5.1); Protein, Total 7.1 g/dL (5.8-8.1); Sodium 136 mmol/L (136-145)
[2023-07-29 12:30] LABS: Troponin I Less than 0.010 ng/mL (< 0.028)
[2023-07-29] MEDS ORDERED: Iopamidol-370 76% 500 ML MDV (1 ML CHARGE) ONE (13:04)
[2023-07-29 14:48] LABS: Bilirubin Negative (Negative); Blood, Urine Negative (Negative); Clarity Clear (Clear); Glucose, Urine (Dipstick) Greater than 1000 mg/dL (Negative); Ketone, Urine 100 mg/dL (Negative); Leukocyte Negative Leu/uL (Negative); Nitrite Negative (Negative); Protein, Urine (Dipstick) 20 mg/dL (Neg-Trace); Urobilinogen Normal mg/dL (Less than 2)
[2023-07-29 14:51] LABS: CAUTI Indications for Culture Dysuria,urgency,freq; RBC/HPF None Seen HPF (0-3); Specific Gravity, Urine Greater than 1.060 (1.002-1.036); Squamous Epithelial 0-3 HPF (0-3); WBC/HPF None Seen HPF (0-3)
[2023-07-29 14:52] LABS: Urine Culture Reflex No No
[2023-07-29] MEDS ORDERED: Ondansetron ODT 4 MG TAB SL PRN (16:00)
[2023-07-29] MEDS ORDERED: Acetaminophen 325 MG TAB PO PRN (16:00)
[2023-07-29] MEDS ORDERED: Sodium Chloride 0.9% 1,000 ML IV SCH (16:00)
[2023-07-29] MEDS ORDERED: Ondansetron PF 4 MG/2 ML Vial IVP PRN (16:00)
[2023-07-29 16:25] VITALS: BMI 29.8
[2023-07-29] MEDS ORDERED: Dextrose 50% Abboject 50 ML SYRINGE SLOW IVP PRN (16:27)
[2023-07-29] MEDS ORDERED: Glucagon 1 MG/ML KIT IM PRN (16:27)
[2023-07-29] MEDS ORDERED: Dextrose 5% in Water 1,000 ML IV PRN (16:27)
[2023-07-29] MEDS ORDERED: HumaLOG 300 UNITS/3 ML VIAL SC PRN (16:29)
[2023-07-29] MEDS ORDERED: Lactated Ringer's 1,000 ML IV SCH (16:45)
[2023-07-29] MEDS ORDERED: Pantoprazole 40 MG VIAL IVP SCH (17:00)
[2023-07-29] MEDS: Ketorolac Tromethamine 30 MG/ML VIAL IVP SCH ×2 (18:06→22:33)
[2023-07-29 20:46] LABS: Magnesium 1.9 mg/dL (1.6-2.6); Phosphorus 3.4 mg/dL (2.3-4.7)
[2023-07-29] MEDS ORDERED: Potassium Chloride 20 MEQ in Premix 1 BAG IVPB SCH (21:30)
[2023-07-30] MEDS: Potassium Chloride 20 MEQ in Lactated Ringer's 1,000 ML IV SCH ×2 (00:54→10:54)
[2023-07-30] MEDS: Ketorolac Tromethamine 30 MG/ML VIAL IVP SCH ×2 (05:28→10:54)
[2023-07-30 06:38] LABS: #Eosinphils 0.2 thou/uL (0.0-0.7); #Monocytes 0.6 thou/uL (0.11-0.59); #Neutrophils 1.8 thou/uL (1.40-6.50); %Basophils 0.8 % (0.0-1.0); %Eosinophils 4.1 % (0.0-10.0); %Lymphocytes 28.3 % (21.0-51.0); %Monocytes 15.7 % (0.0-10.0); %Neutrophils 49.7 % (42.0-75.0); Hematocrit 33.6 % (42.0-52.0); Hemoglobin 11.4 g/dL (14.0-18.0); Mean Corpuscular HGB CONC 33.9 g/dL (32.0-36.0); Mean Corpuscular Hemoglobin 32.1 pg (27.0-31.0); Mean Platelet Volume 8.9 fL (7.4-10.4); Platelet Count 277 10x3/uL (130-400); RBC Distribution Width 12.9 % (11.5-14.5); Red Blood Cell (RBC) Count 3.55 mill/uL (4.70-6.10); White Blood Cell (WBC) Count 3.6 10x3/uL (4.8-10.8)
[2023-07-30 06:41] LABS: Mean Corpuscular Volume 94.6 fl (78.0-98.0)
[2023-07-30 07:15] LABS: ALT (SGPT) 10 U/L (8-55); AST (SGOT) 14 U/L (5-34); Albumin 3.5 g/dL (3.4-4.8); Alkaline Phosphatase 59 U/L (40-110); Anion Gap 13 mmol/L (10-20); BUN (Urea Nitrogen) 15 mg/dL (8.4-25.7); Bilirubin, Total 0.5 mg/dL (0.2-1.2); Calc. Creatinine Clearance 145 mL/min (70-130); Carbon Dioxide 24 mmol/L (23-31); Chloride 105 mmol/L (98-107); Estimated GFR 101; Globulin 2.1 g/dL (2.4-3.5); Glucose 107 mg/dL (80-115); Magnesium 1.9 mg/dL (1.6-2.6); Phosphorus 3.7 mg/dL (2.3-4.7); Protein, Total 5.6 g/dL (5.8-8.1); Sodium 139 mmol/L (136-145)
[2023-07-30] MEDS: Pantoprazole 40 MG VIAL IVP SCH (08:03)
[2023-07-30] MEDS ORDERED: Potassium Bicarbonate/Cit Ac 20 MEQ TAB PO SCH (10:45)
[2023-07-30] MEDS ORDERED: Polyethylene Glycol 3350 17 GM Packet PO SCH (10:45)
[2023-07-30] MEDS: Potassium Bicarbonate/Cit Ac 20 MEQ TAB PO SCH (16:20)
[2023-07-30] MEDS: Ketorolac Tromethamine 30 MG/ML VIAL IVP PRN (21:32)
[2023-07-31] MEDS: Ketorolac Tromethamine 30 MG/ML VIAL IVP PRN (04:19)
[2023-07-31 06:53] LABS: #Eosinphils 0.1 thou/uL (0.0-0.7); #Monocytes 0.5 thou/uL (0.11-0.59); %Basophils 0.6 % (0.0-1.0); %Lymphocytes 22.8 % (21.0-51.0); %Monocytes 14.5 % (0.0-10.0); %Neutrophils 58.2 % (42.0-75.0); Hematocrit 33.6 % (42.0-52.0); Hemoglobin 11.6 g/dL (14.0-18.0); Mean Corpuscular HGB CONC 34.5 g/dL (32.0-36.0); Mean Corpuscular Volume 92.6 fl (78.0-98.0); Mean Platelet Volume 8.8 fL (7.4-10.4); Platelet Count 275 10x3/uL (130-400); RBC Distribution Width 12.7 % (11.5-14.5); Red Blood Cell (RBC) Count 3.63 mill/uL (4.70-6.10); White Blood Cell (WBC) Count 3.4 10x3/uL (4.8-10.8)
[2023-07-31 07:20] LABS: ALT (SGPT) 12 U/L (8-55); AST (SGOT) 16 U/L (5-34); Albumin 3.5 g/dL (3.4-4.8); Alkaline Phosphatase 62 U/L (40-110); Anion Gap 12 mmol/L (10-20); BUN (Urea Nitrogen) 9 mg/dL (8.4-25.7); Bilirubin, Total 0.5 mg/dL (0.2-1.2); Calc. Creatinine Clearance 154 mL/min (70-130); Calcium 9.1 mg/dL (7.8-10.44); Carbon Dioxide 25 mmol/L (23-31); Chloride 106 mmol/L (98-107); Estimated GFR 103; Globulin 2.1 g/dL (2.4-3.5); Glucose 152 mg/dL (80-115); Magnesium 1.8 mg/dL (1.6-2.6); Phosphorus 3.8 mg/dL (2.3-4.7); Potassium 2.9 mmol/L (3.5-5.1); Protein, Total 5.6 g/dL (5.8-8.1); Sodium 140 mmol/L (136-145)
[2023-07-31] MEDS ORDERED: Potassium Chloride 20 MEQ TAB PO SCH (08:00)
[2023-07-31] MEDS: Potassium Bicarbonate/Cit Ac 20 MEQ TAB PO SCH ×2 (08:01→08:17)
[2023-07-31] MEDS: Cholecalciferol 1,000 UNITS (25 MCG) TAB PO SCH (08:09)
[2023-07-31] MEDS: Empagliflozin 25 MG TAB PO SCH (08:10)
[2023-07-31] MEDS: Pantoprazole 40 MG VIAL IVP SCH (08:10)
[2023-07-31] MEDS: Aspirin 81 mg Enteric Coated Tablet PO SCH (08:10)
[2023-07-31] MEDS: Ezetimibe 10 MG TAB PO SCH (08:10)
[2023-07-31] MEDS ORDERED: Non-Formulary Item 1 EACH (Rosuvastatin Calcium [Rosuvastatin Calcium] 40 MG Tablet) PO SCH (09:00)
[2023-07-31] MEDS ORDERED: Non-Formulary Item 1 EACH (Dapagliflozin Propanediol [Farxiga] 10 MG Tablet) PO SCH (09:00)
[2023-07-31] MEDS ORDERED: Polyethylene Glycol 3350 17 GM Packet PO SCH (09:00)
[2023-07-31] MEDS ORDERED: Non-Formulary Item 1 EACH (Ergocalciferol (Vitamin D2) [Vitamin D2] 50 MCG Capsule) PO SCH (09:00)
[2023-07-31] MEDS: Docusate 100 MG CAP PO SCH ×2 (11:24→20:43)
[2023-07-31 14:29] LABS: Anion Gap 16 mmol/L (10-20); BUN (Urea Nitrogen) 9 mg/dL (8.4-25.7); Calc. Creatinine Clearance 130 mL/min (70-130); Calcium 9.3 mg/dL (7.8-10.44); Carbon Dioxide 23 mmol/L (23-31); Chloride 105 mmol/L (98-107); Estimated GFR 98; Glucose 163 mg/dL (80-115); Potassium 3.7 mmol/L (3.5-5.1); Sodium 140 mmol/L (136-145)
[2023-07-31] MEDS ORDERED: diphenhydrAMINE 50 MG/ML VIAL IVP SCH (18:15)
[2023-07-31] MEDS ORDERED: Rosuvastatin 20 MG TAB PO SCH (21:00)
[2023-08-01] MEDS: Ketorolac Tromethamine 30 MG/ML VIAL IVP PRN (01:09)
[2023-08-01] MEDS ORDERED: Acetaminophen 500 MG TAB PO PRN (07:35)
[2023-08-01 07:46] VITALS: TEMP 98
[2023-08-01] MEDS: Empagliflozin 25 MG TAB PO SCH (08:23)
[2023-08-01] MEDS: Docusate 100 MG CAP PO SCH (08:23)
[2023-08-01] MEDS: Aspirin 81 mg Enteric Coated Tablet PO SCH (08:23)
[2023-08-01] MEDS: Cholecalciferol 1,000 UNITS (25 MCG) TAB PO SCH (08:23)
[2023-08-01] MEDS: Ezetimibe 10 MG TAB PO SCH (08:23)
[2023-08-01] MEDS ORDERED: Senokot S 8.6-50 MG TAB PO SCH (09:00)
[2023-08-01] MEDS ORDERED: Polyethylene Glycol 3350 17 GM Packet PO SCH (09:00)
[2023-08-01] MEDS ORDERED: Pantoprazole 40 MG VIAL IVP SCH (09:00)
[2023-08-01] MEDS ORDERED: Hydrocortisone 1% Cream 30 GM TUBE TOP SCH ×2 (11:15→21:00)
[2023-08-01 12:31] LABS: ALT (SGPT) 18 U/L (8-55); AST (SGOT) 26 U/L (5-34); Albumin 3.9 g/dL (3.4-4.8); Alkaline Phosphatase 79 U/L (40-110); Anion Gap 13 mmol/L (10-20); BUN (Urea Nitrogen) 9 mg/dL (8.4-25.7); Bilirubin, Total 0.6 mg/dL (0.2-1.2); Calc. Creatinine Clearance 143 mL/min (70-130); Calcium 9.4 mg/dL (7.8-10.44); Carbon Dioxide 24 mmol/L (23-31); Chloride 107 mmol/L (98-107); Estimated GFR 100; Globulin 2.3 g/dL (2.4-3.5); Glucose 135 mg/dL (80-115); Phosphorus 4.4 mg/dL (2.3-4.7); Potassium 3.3 mmol/L (3.5-5.1); Protein, Total 6.2 g/dL (5.8-8.1); Sodium 141 mmol/L (136-145)
[2023-08-01] MEDS ORDERED: Potassium Chloride 20 MEQ TAB PO SCH (12:45)
[2023-08-01 14:15] LABS: #Eosinphils 0.1 thou/uL (0.0-0.7); #Monocytes 0.5 thou/uL (0.11-0.59); #Neutrophils 3.1 thou/uL (1.40-6.50); %Basophils 0.4 % (0.0-1.0); %Eosinophils 2.5 % (0.0-10.0); %Monocytes 9.8 % (0.0-10.0); %Neutrophils 63.5 % (42.0-75.0); Hematocrit 37.4 % (42.0-52.0); Hemoglobin 12.9 g/dL (14.0-18.0); Mean Corpuscular HGB CONC 34.5 g/dL (32.0-36.0); Mean Corpuscular Hemoglobin 32.4 pg (27.0-31.0); Mean Platelet Volume 8.6 fL (7.4-10.4); Platelet Count 297 10x3/uL (130-400); RBC Distribution Width 12.8 % (11.5-14.5); Red Blood Cell (RBC) Count 3.98 mill/uL (4.70-6.10); White Blood Cell (WBC) Count 4.8 10x3/uL (4.8-10.8)
[2023-08-01 16:28] VITALS: BP 110/71
[2023-08-01 19:18] LABS: Anion Gap 13 mmol/L (10-20); BUN (Urea Nitrogen) 10 mg/dL (8.4-25.7); Calc. Creatinine Clearance 139 mL/min (70-130); Calcium 9.5 mg/dL (7.8-10.44); Carbon Dioxide 25 mmol/L (23-31); Chloride 106 mmol/L (98-107); Estimated GFR 100; Glucose 104 mg/dL (80-115); Potassium 3.5 mmol/L (3.5-5.1); Sodium 140 mmol/L (136-145)
== END 2023-08-01 20:10 | disposition home or self-care (01) | DRG 394 ==
LOC: ERS 11:03 → T4-B 14:58
PROVIDERS: ADMIT Student in an Organized Health Care Education/Training Program; ATTEND Student in an Organized Health Care Education/Training Program
DX: K91.89 Other postprocedural complications and disorders of digestive system (principal); J98.11 Atelectasis; K56.7 Ileus, unspecified; I10 Essential (primary) hypertension; E11.9 Type 2 diabetes mellitus without complications; E78.5 Hyperlipidemia, unspecified; G47.33 Obstructive sleep apnea (adult) (pediatric); J98.6 Disorders of diaphragm; R21 Rash and other nonspecific skin eruption; Z96.641 Presence of right artificial hip joint; Z91.018 Allergy to other foods; Z79.899 Other long term (current) drug therapy; Z79.82 Long term (current) use of aspirin; Z98.890 Other specified postprocedural states; Z95.1 Presence of aortocoronary bypass graft; Z90.89 Acquired absence of other organs; Z87.442 Personal history of urinary calculi; Z80.41 Family history of malignant neoplasm of ovary; Z80.3 Family history of malignant neoplasm of breast; Z82.49 Family history of ischemic heart disease and other diseases of the circulatory system
CPT/HCPCS: 36415; 36416; 71045; 74018; 74177; 80053; 81001; 83605; 83690; 83735; 84100; 84484; 85025; 93005; 96361; 96374; 96375; 96376; C9113; J1200; J1650; J1885; J2270; J2405; J3480; J7120; Q9967

== ENCOUNTER 2023-10-23 15:25 | Emergency (ER) | payer MEDICARE, BC ==
[2023-10-23] MEDS ORDERED: Acetaminophen 325 MG TAB ONE (16:05)
[2023-10-23] MEDS ORDERED: Diazepam 5 MG TAB ONE (16:06)
== END 2023-10-23 17:28 | disposition home or self-care (01) ==
LOC: ERS 15:25
DX: S39.012A Strain of muscle, fascia and tendon of lower back, initial encounter (principal); S70.02XA Contusion of left hip, initial encounter; M62.830 Muscle spasm of back; E78.00 Pure hypercholesterolemia, unspecified; E11.9 Type 2 diabetes mellitus without complications; I25.10 Atherosclerotic heart disease of native coronary artery without angina pectoris; W18.2XXA Fall in (into) shower or empty bathtub, initial encounter; Z79.82 Long term (current) use of aspirin; Z79.84 Long term (current) use of oral hypoglycemic drugs; Z79.899 Other long term (current) drug therapy
CPT/HCPCS: 72100

== ENCOUNTER 2024-06-13 10:14 | Outpatient (CLI) | payer MEDICARE, BC | END 2024-06-13 10:15 | disposition home or self-care (01) | LOC: RAD 10:14 | PROVIDERS: ATTEND Internal Medicine Critical Care Medicine | DX: R06.00 Dyspnea, unspecified (principal) | CPT/HCPCS: 71046 ==

== ENCOUNTER 2024-07-30 08:18 | Outpatient (CLI) | payer MEDICARE, BC | END 2024-07-30 08:19 | disposition home or self-care (01) | LOC: NM 08:18 | PROVIDERS: ATTEND Internal Medicine Critical Care Medicine | DX: R06.00 Dyspnea, unspecified (principal); I51.7 Cardiomegaly; R09.89 Other specified symptoms and signs involving the circulatory and respiratory systems; R94.39 Abnormal result of other cardiovascular function study | CPT/HCPCS: 71046; 78451; A9540 ==

== ENCOUNTER 2024-08-08 11:26 | Outpatient (CLI) | payer MEDICARE, BC | END 2024-08-08 11:27 | disposition home or self-care (01) | LOC: SCSRAD 11:26 | PROVIDERS: ATTEND Family Medicine | DX: R05.9 Cough, unspecified (principal); I51.7 Cardiomegaly; R09.89 Other specified symptoms and signs involving the circulatory and respiratory systems | CPT/HCPCS: 71046 ==

== ENCOUNTER 2024-09-20 13:55 | Outpatient (CLI) | payer MEDICARE, BC ==
[2024-09-20 15:20] LABS: #Basophils 0.03 10x3/uL (0.0-0.2); %Basophils 0.5 % (0.0-1.0); %Eosinophils 2.3 % (0.0-10.0); %Monocytes 9.5 % (0.0-10.0); %Neutrophils 62.3 % (42.0-75.0); Hematocrit 43.1 % (42.0-52.0); Hemoglobin 15.6 g/dL (14.0-18.0); Mean Corpuscular HGB CONC 36.2 g/dL (32.0-36.0); Mean Corpuscular Hemoglobin 33.1 pg (27.0-31.0); Mean Corpuscular Volume 91.5 fL (78.0-98.0); Mean Platelet Volume 9.7 fL (7.4-10.4); Platelet Count 152 10x3/uL (130-400); RBC Distribution Width 12.3 % (11.5-14.5); Red Blood Cell (RBC) Count 4.71 mill/uL (4.70-6.10)
[2024-09-20 15:38] LABS: ALT (SGPT) 25 U/L (8-55); AST (SGOT) 23 U/L (5-34); Albumin 4.4 g/dL (3.4-4.8); Alkaline Phosphatase 57 U/L (40-110); Anion Gap 13 mmol/L (10-20); BUN (Urea Nitrogen) 13 mg/dL (8.4-25.7); Bilirubin, Total 0.8 mg/dL (0.2-1.2); Calc. Creatinine Clearance 0 mL/min (70-130); Calcium 9.4 mg/dL (7.8-10.44); Carbon Dioxide 24 mmol/L (23-31); Chloride 103 mmol/L (98-107); Estimated GFR 94; Globulin 2.9 g/dL (2.4-3.5); Glucose 145 mg/dL (80-115); Potassium 4.2 mmol/L (3.5-5.1); Protein, Total 7.3 g/dL (5.8-8.1); Sodium 136 mmol/L (136-145)
== END 2024-09-20 13:56 | disposition home or self-care (01) ==
LOC: LABBT 13:55
PROVIDERS: ATTEND Internal Medicine Cardiovascular Disease
DX: Z01.812 Encounter for preprocedural laboratory examination (principal); I25.10 Atherosclerotic heart disease of native coronary artery without angina pectoris; R06.02 Shortness of breath
CPT/HCPCS: 80053; 85025

== ENCOUNTER 2025-05-28 08:46 | Outpatient (CLI) | payer MEDICARE, BC | END 2025-05-28 08:47 | disposition home or self-care (01) | LOC: RAD 08:46 | PROVIDERS: ATTEND Family Medicine | DX: J69.0 Pneumonitis due to inhalation of food and vomit (principal) | CPT/HCPCS: 74230 ==